=== PATIENT | female | born 1960 | race Caucasian/White ===

== ENCOUNTER 2025-02-22 14:16 | Inpatient (IN) ==
[2025-02-22 14:39] LABS: Hematocrit (blood only) 30.5 % (37.0-47.0); Hemoglobin 9.7 g/dl (12.0-16.0); Mean Corpuscular Hemoglobin 27.2 pg (25.0-34.0); Mean Corpuscular Volume 85.7 fL (80.0-100.0); Platelet Count 251 K/uL (130-400); RDW Standard Deviation 47.3 fL (36.4-46.3); Red Blood Count 3.56 M/uL (4.20-5.40); White Blood Count 12.78 K/ul (4.8-10.8)
[2025-02-22] MEDS ORDERED: VANCOMYCIN CONSULT ACTIVE PRN ×2 (14:50→22:45)
[2025-02-22] MEDS ORDERED: VANCOMYCIN HCL 750 MG in SODIUM CHLORIDE 0.9% 500 ML IV STA (14:50)
--- NOTE | 2025-02-22 14:50 | Emergency Department Note ---
Impression & Plan Sepsis, Acute and chronic respiratory failure with hypoxia, Hypokalemia, Hypomagnesemia, Non-ST elevation LA (NSTEMI), Elevated troponin I level ED Provider Note NAME: VIVIEN PADILLA AGE: 64 SEX: F : 1960 ARRIVES VIA: Walk-In INFORMANT: Patient, daughter ED PROVIDER(S): Deepak Garay DO CHIEF COMPLAINT: fever HPI: This is a 64-year-old female with the PMHx of SCLC with metastatic disease on active chemotherapy with last session yesterday, hyperlipidemia, COPD, rheumatoid arthritis, and anxiety/depression presenting to [facility] for further evaluation of fevers. Patient is accompanied by daughter who provide additional history. she reports that she reported to the [facility] today for evaluation. She was noted to have a fever. She notes that she has had chills. She states that she has arise has been in her normal state of health. She states that she does have known brain metastasis. She states that she has had a mild increase in her headaches. She reports that she had her Mediport placed on Thursday. Patient reports no pain, swelling or redness at the site. No cough or congestion. Denies chest pain or palpitations. No shortness of breath. They deny abdominal pain, nausea and vomiting. No urinary complaints. No recent changes in bowel movements. Patient denies recent changes in medications or OTC supplements. Patient offers no other complaints, today. ADDITIONAL HISTORY OBTAINED: Per HPI Chronic Medical/Social Conditions Affecting Care: Per HPI PAST MEDICAL HISTORY: See Below PAST SURGICAL HISTORY: See Below FAMILY HISTORY: See Below SOCIAL HISTORY: See Below HOME MEDICATIONS: See Below ALLERGIES: See Below VITALS: See Below PHYSICAL EXAMINATION: GENERAL: Sitting up in bed, alert, well appearing, well nourished, no distress, non-toxic EYE EXAM: normal conjunctiva. Mild anisocoria present OS 6 mm, OD 5 mm but reactive to light and EOM's grossly intact. OROPHARYNX: no exudate, no erythema, lips, buccal mucosa, and tongue normal and mucous membranes are moist NECK: supple, no nuchal rigidity, no adenopathy, non-tender LUNGS: Clear to auscultation. Normal chest wall mechanics HEART: no murmurs, regular rate, regular rhythm ABDOMEN: abdomen soft, non-tender, normo-active bowel sounds, no masses, no rebound or guarding. BACK: Back is symmetrical on inspection and there is no deformity, no midline tenderness, no CVA tenderness. SKIN: no rashes and no bruising UPPER EXTREMITIES: upper extremities are grossly normal. LOWER EXTREMITIES: No pitting edema. NEURO EXAM: Normal sensorium, cranial nerves II-XII grossly intact, normal speech, no gross weakness of arms, no gross weakness of legs. No drift. Finger to nose intact. Gross sensation intact. MEDICAL DECISION MAKING: Differential diagnoses includes but not limited to sepsis, bacteremia, UTI, pneumonia, viral URI, electrolyte derangements, dehydration, chemotherapy side effect In summary, this is a 64-year-old female who presented with fevers. Differential as above. Nursing notes and pertinent past medical records reviewed. Vital signs reviewed and the patient is febrile with a heart rate in the 90s but otherwise hemodynamically stable. History and presentation revealed active chemotherapy with last session yesterday and recent Mediport placement. Physical examination revealed minimal suprapubic tenderness to palpation but otherwise unremarkable exam. As a result of my initial evaluation, patient is on active chemotherapy for small cell lung cancer with last chemotherapy session yesterday. Recent Mediport placement. Now with fever and vital signs meeting SIRS criteria. Plan for sepsis alert. Will place on broad-spectrum antibiotics. Diagnostics interpreted by me include EKG and cardiac monitoring as listed below: -Cardiac Monitoring: An order was placed for continuous cardiac monitoring. The monitor shows a rate of 90s with regular rhythm. -ECG: EKG independently interpreted by me reveals normal sinus rhythm at a rate of [address] segment change to suggest STEMI. Intervals are otherwise within normal limits. Patient completed laboratory studies and imaging. Results independently interpreted by me are Significant for leukocytosis of 12, and mild anemia from baseline. Coagulation factors were within normal limits. Potassium was noted to be slightly low and oral replenishment was ordered. Magnesium was also mildly low and IV replenishment was ordered. Procalcitonin is negative. The patient was managed with broad spectrum antibiotics as well as fluid resuscitation and antipyretics. She was placed on broad spectrum abx given history of SCLC on active chemotherapy. CXR independently interpreted by me reveals no evidence of focal consolidation to suggest pna. No large pneumothorax or pleural effusion. Patient does have a troponin leak and BNP. Given this along with fevers and AHRF, this could be pulmonary embolus. Moderate risk of PE and CT PE study was ordered. Negative RVP and UA. Unclear source of possible sepsis. For these reasons, will obtain CTAP for further evaluation of infectious source. No meningeal findings to suggest ICH/spinal pathology. She remained hemodynamic stable but now requiring low-flow nasal cannula for oxygenation support. CT PE study as well as abdomen pelvis independently interpreted by me as negative for saddle pulmonary embolism. No significant evidence of pneumonia but could still be possible. Patient does not have any intra-abdominal pathology to suggest a source of her infection. Given no evidence of a pulmonary embolism, unclear the source of her troponinemia or BNP. She is not having any significant chest pain or shortness of breath. The patient does not have evidence of significant changes on EKG. Suspect this is likely type II demand ischemia in the setting of her sepsis as well as lung malignancy. For this reason, do not feel heparin bolus or infusion is necessary at this time. Discussed that her presentation and fevers could be related to infections and even bacteremia. I doubt that she is bacteremic but cannot ignore her chemotherapy as well as recent procedure including Mediport placement. Patient will require inpatient management for broad-spectrum antibiotics while awaiting culture data. Patient will also need further support with oxygenation with low flow nasal cannula. Will likely need this set up at home. Patient was discussed with the [facility] hospitalist group and admitted in the setting of sepsis with unknown source and acute hypoxic respiratory failure further complicated by troponinemia and elevated BNP. Consults/Care Managements Discussions: Per [facility] ER treatment provided: See above Procedures:none Critical Care: None Past Med/Surg History Problem List Elevated troponin I level (Acute) Non-ST elevation LA (NSTEMI) (Acute) Hypomagnesemia (Acute) Hypokalemia (Acute) Acute and chronic respiratory failure with hypoxia (Acute) Sepsis (Acute) Encounter for pre-operative examination High cholesterol Bronchitis Asthma Arthritis Anemia Lung cancer metastatic to brain (Chronic) Small cell lung cancer Abnormal CT scan, chest Lung nodule Tobacco abuse counseling Chronic cough Chronic obstructive pulmonary disease H/O rheumatoid arthritis History of chronic obstructive pulmonary disease H/O vitamin D deficiency H/O: depression H/O anxiety disorder No pertinent past surgical history Medical History Hx MRSA infection (2020) Wound, treated > resolved per pt Lung nodule Hx of rheumatoid arthritis History of anxiety Hx of hyperlipidemia Hx of migraines Lung cancer metastatic to brain Dx early 01/2025 Starting chemo 02/20/25, start XRT 02/21/25 Small cell lung cancer Dx early 01/2025 Starting chemo 02/20/25, start XRT 02/21/25 History of depression Chronic cough History of COPD History of asthma History of arthritis History of anemia Aortic insufficiency Follows with [facility] Chronic bronchitis Fibromyalgia Osteoporosis Surgical History Port-A-Cath in place (02/13/25) Insertion Access Port with Fluoroscopy(Left) - Luis Enrique Davey DO History of diagnostic ultrasound 01/2025, EBUS History of anesthesia reaction Has had hallucinations in past Nausea and vomiting after administration of anesthetic agent History of esophagogastroduodenoscopy (EGD) Hx of colonoscopy History of cataract surgery Bilateral History of surgery Right antecubital area - ruptured artery - then repair of an aneurysm in this same area History of surgery For fractured left clavicle > hardware intact H/O removal of cyst Upper left back H/O: hysterectomy Previous section Family History Mother , in her 70s Appendicitis Septic Diabetes Hypertension Father Medical history unknown Sister Diabetes Alcoholic Daughter Prediabetes Depression Anxiety Other Heart disease Social History Smoking Status: Former smoker Tobacco Type: Cigarettes Age Started Using Tobacco: 11; packs per day: 1; Cigarettes Per Day: 20; Second Hand Exposure: Yes (hx); Do You Dip or Chew Tobacco: No; Hx Alcohol Use: Yes (none in years) Hx Substance Use: Yes Prescribed Medications: Former Misuse of Rx Meds, Marijuana and Painkillers Last Used Substance Other:: 2-3 weeks ago Preferred Language: Estonian Communication Ability: Effective Disc Pad Knockout Worker Required: No Beliefs That Will Affect Care: None marital status: Current Living Situation: Alone current occupational status: retired current occupation: Cook How many Children do You have: 1 Feels Safe at Home: Yes Diet: regular caffeine: No during the past year weight has: decreased > 10 lbs Assistive Devices: Denture - Upper, Denture - Lower and Glasses Allergies Allergies Allergy/AdvReac Type Severity Reaction Status Date / Time ranitidine Allergy Intermediate eyes Verified 02/22/25 16:59 swelled shut Corticosteroids AdvReac Intermediate Jittery, Verified 02/22/25 16:59 (Glucocorticoids) hyperactivity, can not sleep doxycycline AdvReac Intermediate Vomiting Verified 02/22/25 16:59 tramadol AdvReac Intermediate Hallucinati Verified 02/22/25 16:59 ng Home Meds Home Medications Medication Instructions Recorded Confirmed albuterol sulfate 90 mcg/actuation 1 inh inhalation QID PRN Shortness 04/16/20 02/22/25 breath activated powder inhaler Of Breath aspirin 81 mg tablet,delayed 81 mg PO QAM 04/16/20 02/22/25 release (Adult Aspirin Regimen) tofacitinib 11 mg tablet,extended 11 mg PO QAM 04/16/20 02/22/25 release 24 hr (Xeljanz XR) clonazepam 0.5 mg tablet 0.5 mg PO DAILY PRN Anxiety 12/12/24 02/22/25 rosuvastatin 20 mg tablet (Crestor) 20 mg PO QAM 12/12/24 02/22/25 sertraline 100 mg tablet (Zoloft) 100 mg PO HS 12/12/24 02/22/25 acetaminophen 500 mg tablet 500 mg PO QID PRN Pain 02/02/25 02/22/25 (Tylenol Extra Strength) loratadine 10 mg tablet (Claritin) 10 mg PO DAILY PRN Allergy Symptoms 02/02/25 02/22/25 mecobalamin (vitamin B12) 1,000 1,000 mcg PO DAILY 02/02/25 02/22/25 mcg chewable tablet [id number]-[id number]-[id number] 1 tab PO BID PRN Headache 02/22/25 02/22/25 50 mg-325 mg-40 mg tablet dexamethasone 4 mg tablet 4 mg PO DIRECTED 02/22/25 02/22/25 gabapentin 300 mg capsule 300 mg PO TID 02/22/25 02/22/25 olanzapine 2.5 mg tablet 2.5 mg PO DIRECTED 02/22/25 02/22/25 ondansetron 8 mg disintegrating 8 mg PO Q8H PRN NAUSEA/VOMITING 02/22/25 02/22/25 tablet prochlorperazine maleate 10 mg 10 mg PO Q6H PRN NAUSEA/VOMITING 02/22/25 02/22/25 tablet Previous Rx's Medication Instructions Recorded tiotropium 2.5 mcg-olodaterol 2.5 2 puff inhalation DAILY #4 grams 12/13/24 mcg/actuation mist for inhalation (Stiolto Respimat) oxycodone 5 mg tablet 5 mg PO Q6H PRN pain #12 tabs 02/13/25 Results & Data (ED) Vital Signs Vital Signs - 24 hr 02/22/25 14:21 02/22/25 15:15 02/22/25 15:45 Temperature 38.7 C H Temperature Source Temporal Artery Scan Pulse Rate 95 H 92 H Pulse Rate from SpO2 Sensor Pulse Rhythm Regular Respiratory Rate 18 20 Respiratory Effort / Characteristics Non-Labored Spontaneous Respiratory Depth Normal Blood Pressure 151/82 H Blood Pressure Mean 105 Blood Pressure Position Sitting Pulse Oximetry 92 94 96 Oxygen Delivery Method Room Air Room Air Room Air Oxygen Flow Rate Sepsis Recent Fever Within 48 Hours Yes Sepsis New/Unexplained Change in Mental Status No Sepsis Action Taken by Nursing No Action Required 02/22/25 16:54 02/22/25 17:09 02/22/25 17:24 Temperature Temperature Source Pulse Rate 90 94 H 88 Pulse Rate from SpO2 Sensor 90 87 Pulse Rhythm Respiratory Rate 15 22 Respiratory Effort / Characteristics Respiratory Depth Blood Pressure 120/65 124/67 Blood Pressure Mean 83 86 Blood Pressure Position Pulse Oximetry 94 91 Oxygen Delivery Method Nasal Cannula Nasal Cannula Oxygen Flow Rate 2 2 Sepsis Recent Fever Within 48 Hours Sepsis New/Unexplained Change in Mental Status Sepsis Action Taken by Nursing Laboratory Data 02/22/25 14:25 02/22/25 14:25 Lab Results 02/22/25 02/22/25 02/22/25 Range/Units 14:25 15:14 16:31 WBC 12.78 H (4.8-10.8) K/ul RBC 3.56 L (4.20-5.40) M/uL Hgb 9.7 L (12.0-16.0) g/dl Hct 30.5 L (37.0-47.0) % MCV 85.7 (80.0-100.0) fL MCH 27.2 (25.0-34.0) pg MCHC 31.8 L (32.0-36.0) g/dL RDW Std Deviation 47.3 H (36.4-46.3) fL RDW Coeff of Nico 14.9 H (11.5-14.5) % Plt Count 251 (130-400) K/uL MPV 9.1 L (9.4-12.4) fL Immature Gran % (Auto) 0.9 % Neut % (Auto) 93.6 % Lymph % (Auto) 4.1 % [place] % (Auto) 1.3 % Eos % (Auto) 0.0 % Baso % (Auto) 0.1 % Neut # (Auto) 11.96 H (1.40-6.50) K/uL Lymph # (Auto) 0.53 L (1.20-3.40) K/uL [place] # (Auto) 0.17 (0.11-0.59) K/uL Eos # (Auto) 0.00 (0.00-0.50) K/uL Baso # (Auto) 0.01 (0.00-0.20) K/uL Immature Gran # (Auto) 0.11 (0.01-0.20) K/uL PT 10.4 (9.0-12.0) Seconds INR 1.0 (0.9-1.1) APTT 25 (21-31) Seconds PTT Ratio 0.9 VBG pH 7.46 H (7.36-7.41) VBG pCO2 36 L (38-50) mmHg VBG pO2 46 mmHg VBG HCO3 26 mmol/L VBG O2 Saturation 85.6 % VBG Base Excess 1.8 mEq/L Sodium 136 (136-145) mmol/L Potassium 3.2 L (3.5-5.1) mmol/L Chloride 104 (98-107) mmol/L Carbon Dioxide 24 (21-32) mmol/L Anion Gap 8 (3-11) BUN 11 (6-23) mg/dl Creatinine 0.66 (0.6-1.2) mg/dl Est Cr Clr Drug Dosing 52.5 ml/min eGFR 97.90 BUN/Creatinine Ratio 16.7 (10-20) Glucose 149 H (70-99(Fasting)) mg/dl Lactate 1.5 (0.4-2.0) mmol/L Calcium 8.0 L (8.6-10.3) mg/dl Magnesium 1.5 L (1.7-2.4) mg/dl Total Bilirubin 0.3 (0.2-1.0) mg/dl AST 19 (13-39) U/L ALT 13 (7-52) U/L Alkaline Phosphatase 58 (34-104) U/L Troponin I High Sens 142.0 H* 144.7 H* (0-14) pg/ml B-Natriuretic Peptide 574 H (0-100) pg/ml Total Protein 6.3 (6.0-8.3) gm/dl Albumin 3.4 (3.4-5.0) gm/dl Globulin 2.9 (2.5-4.0) gm/dl Albumin/Globulin Ratio 1.2 (0.9-2) Procalcitonin 0.29 (0-0.5) ng/ml Urine Color Urine Appearance (Clear) Urine pH (4.5-7.5) Ur Specific [place] (1.000-1.030) Urine Protein (Negative) Urine Glucose (UA) (Negative) Urine Ketones (Negative) Urine Blood (Negative) Urine Nitrite (Negative) Urine Bilirubin (Negative) Urine Urobilinogen (Negative) Ur Leukocyte Esterase (Negative) Urine Comment Adenovirus (PCR) (NotDetected) B. pertussis DNA (PCR) (NotDetected) B.parapertussis DNA PCR (NotDetected) C. pneumoniae DNA (PCR) (NotDetected) Coronavirus OC43 (PCR) (NotDetected) Coronavirus HKU1 (PCR) (NotDetected) Coronavirus 229E (PCR) (NotDetected) SARS-CoV-2 (PCR) (NotDetected) Coronavirus NL63 (PCR) (NotDetected) Human Metapneumovir PCR (NotDetected) Influenza Type A (PCR) (NotDetected) Influenza Type B (PCR) (NotDetected) M. pneumoniae (PCR) (NotDetected) Parainfluenza 1 (PCR) (NotDetected) Parainfluenza 2 (PCR) (NotDetected) Parainfluenza 3 (PCR) (NotDetected) Parainfluenza 4 (PCR) (NotDetected) RSV (PCR) (NotDetected) Entero/Rhino (PCR) (NotDetected) 02/22/25 02/22/25 Range/Units 18:21 Unknown WBC (4.8-10.8) K/ul RBC (4.20-5.40) M/uL Hgb (12.0-16.0) g/dl Hct (37.0-47.0) % MCV (80.0-100.0) fL MCH (25.0-34.0) pg MCHC (32.0-36.0) g/dL RDW Std Deviation (36.4-46.3) fL RDW Coeff of Nico (11.5-14.5) % Plt Count (130-400) K/uL MPV (9.4-12.4) fL Immature Gran % (Auto) % Neut % (Auto) % Lymph % (Auto) % [place] % (Auto) % Eos % (Auto) % Baso % (Auto) % Neut # (Auto) (1.40-6.50) K/uL Lymph # (Auto) (1.20-3.40) K/uL [place] # (Auto) (0.11-0.59) K/uL Eos # (Auto) (0.00-0.50) K/uL Baso # (Auto) (0.00-0.20) K/uL Immature Gran # (Auto) (0.01-0.20) K/uL PT (9.0-12.0) Seconds INR (0.9-1.1) APTT (21-31) Seconds PTT Ratio VBG pH (7.36-7.41) VBG pCO2 (38-50) mmHg VBG pO2 mmHg VBG HCO3 mmol/L VBG O2 Saturation % VBG Base Excess mEq/L Sodium (136-145) mmol/L Potassium (3.5-5.1) mmol/L Chloride (98-107) mmol/L Carbon Dioxide (21-32) mmol/L Anion Gap (3-11) BUN (6-23) mg/dl Creatinine (0.6-1.2) mg/dl Est Cr Clr Drug Dosing ml/min eGFR BUN/Creatinine Ratio (10-20) Glucose (70-99(Fasting)) mg/dl Lactate (0.4-2.0) mmol/L Calcium (8.6-10.3) mg/dl Magnesium (1.7-2.4) mg/dl Total Bilirubin (0.2-1.0) mg/dl AST (13-39) U/L ALT (7-52) U/L Alkaline Phosphatase (34-104) U/L Troponin I High Sens 151.3 H* (0-14) pg/ml B-Natriuretic Peptide (0-100) pg/ml Total Protein (6.0-8.3) gm/dl Albumin (3.4-5.0) gm/dl Globulin (2.5-4.0) gm/dl Albumin/Globulin Ratio (0.9-2) Procalcitonin (0-0.5) ng/ml Urine Color Yellow Urine Appearance Clear (Clear) Urine pH 6.0 (4.5-7.5) Ur Specific [place] 1.016 (1.000-1.030) Urine Protein Negative (Negative) Urine Glucose (UA) Negative (Negative) Urine Ketones Negative (Negative) Urine Blood Negative (Negative) Urine Nitrite Negative (Negative) Urine Bilirubin Negative (Negative) Urine Urobilinogen Negative (Negative) Ur Leukocyte Esterase Negative (Negative) Urine Comment Adenovirus (PCR) Not Detected (NotDetected) B. pertussis DNA (PCR) Not Detected (NotDetected) B.parapertussis DNA PCR Not Detected (NotDetected) C. pneumoniae DNA (PCR) Not Detected (NotDetected) Coronavirus OC43 (PCR) Not Detected (NotDetected) Coronavirus HKU1 (PCR) Not Detected (NotDetected) Coronavirus 229E (PCR) Not Detected (NotDetected) SARS-CoV-2 (PCR) Not Detected (NotDetected) Coronavirus NL63 (PCR) Not Detected (NotDetected) Human Metapneumovir PCR Not Detected (NotDetected) Influenza Type A (PCR) Not Detected (NotDetected) Influenza Type B (PCR) Not Detected (NotDetected) M. pneumoniae (PCR) Not Detected (NotDetected) Parainfluenza 1 (PCR) Not Detected (NotDetected) Parainfluenza 2 (PCR) Not Detected (NotDetected) Parainfluenza 3 (PCR) Not Detected (NotDetected) Parainfluenza 4 (PCR) Not Detected (NotDetected) RSV (PCR) Not Detected (NotDetected) Entero/Rhino (PCR) Not Detected (NotDetected) Administered Medications Discontinued Medications Acetaminophen (Acetaminophen 500 Mg Tab) 1,000 mg PO NOW STA Stop: 02/22/25 14:51 Last Admin: 02/22/25 15:57 Dose: 1,000 mg Documented By: TARIQ Cefepime HCl (Maxipime 2000mg) 2,000 mg in 20 mls @ 5 mls/min IV NOW STA; Protocol Stop: 02/22/25 14:53 Last Admin: 02/22/25 15:57 Dose: 5 mls/min Documented By: TARIQ Parenteral Electrolytes (Plasma-Lyte A Ph 7.4) 1,000 mls @ 999 mls/hr IV .Q1H1M ONE Stop: 02/22/25 15:50 Last Admin: 02/22/25 16:21 Dose: Not Given Documented By: TARIQ Magnesium Sulfate/Dextrose (Magnesium Sulfate / D5w) 1 gm in 100 mls @ 100 mls/hr IV Q1H ASPEN Stop: 02/22/25 17:14 Last Infusion: 02/22/25 19:49 Dose: Infused Documented By: Admin: 02/22/25 18:33 Dose: 100 mls/hr Documented By: Infusion: 02/22/25 17:35 Dose: Infused Documented By: Admin: 02/22/25 16:09 Dose: 100 mls/hr Documented By: TARIQ Vancomycin HCl 750 mg/ Sodium (Chloride) 265 mls @ 200 mls/hr IV ONE ONE Stop: 02/22/25 17:19 Last Infusion: 02/22/25 18:00 Dose: Infused Documented By: Admin: 02/22/25 16:26 Dose: 200 mls/hr Documented By: TARIQ Sodium Chloride (Nss) 1,000 mls @ 999 mls/hr IV .Q1H1M ONE Stop: 02/22/25 17:19 Last Infusion: 02/22/25 17:26 Dose: Infused Documented By: Admin: 02/22/25 16:21 Dose: 999 mls/hr Documented By: TARIQ Ioversol (Optiray 320 125ml) 118 ml IV ONCE ONE Stop: 02/22/25 18:17 Last Admin: 02/22/25 18:16 Dose: 118 ml Documented By: LLOYD Ketorolac Tromethamine (Ketorolac Tromethamine 15 Mg/Ml Vial) 15 mg IV NOW STA Stop: 02/22/25 14:51 Last Admin: 02/22/25 15:57 Dose: 15 mg Documented By: TARIQ Potassium Chloride (Potassium Chloride Crtab 20 Meq Tabcr) 40 meq PO NOW STA Stop: 02/22/25 15:16 Last Admin: 02/22/25 15:56 Dose: 40 meq Documented By: TARIQ Imaging Data Radiologist's Impression: Chest X-Ray 02/22/25 14:24 XR chest 1V portable HISTORY: 64 years-old Female Sepsis COMPARISON: Chest radiograph 02/21/2025, PET/CT 01/25/2025. TECHNIQUE: AP view of the chest FINDINGS: Cardiomediastinal and hilar silhouettes are unchanged. Stable positioning of the left subclavian [id number]-[id number] catheter. Emphysema with chronic interstitial coarsening. Reticulonodular opacities of the right lung base are stable. 2 cm right lower lobe nodule redemonstrated. IMPRESSION: 1. Emphysema with chronic reticular nodular opacities of the right lung base, likely infectious or inflammatory. 2. 2 cm right lower lobe nodule redemonstrated, further described on the January 25, 2025 PET/CT. ACT 112: Negative or not required by law. The above report was generated using voice recognition software. It may contain grammatical, syntax or spelling errors. Electronically signed by: Adalberto Dong M.D. 02/22/2025 3:17 PM Abdomen/Pelvis CT 02/22/25 17:15 EXAMINATION: CT of the abdomen and pelvis performed after the administration of IV contrast TECHNIQUE: Helical CT images from the lung bases through the symphysis pubis were obtained with contrast. Coronal and sagittal reformatted images were generated at a workstation for further assessment. Dose reduction techniques were achieved by using automatic exposure control and/or adjustment of mA and/or kV according to patient size and/or use of iterative reconstruction technique. COMPARISON: None HISTORY: Abdominal pain FINDINGS: Liver: No suspicious liver lesions. Portal veins appear patent. Gallbladder: No gallstones. No evidence of acute cholecystitis. Spleen: Normal size. Pancreas: Scattered cystic lesions seen within the body of the pancreas. This includes a cyst seen on the coronal image 45 measuring 11 mm. Mildly dilated pancreatic duct, at the head of measuring 4 mm. Adrenal glands: No adrenal nodules. Kidneys: No hydronephrosis or obstructing renal stones. Bladder / Pelvic organs: Unremarkable. Bowel: No bowel obstruction. No abnormal bowel wall thickening. The appendix is unremarkable. Lymph nodes: No retroperitoneal, mesenteric, or pelvic lymphadenopathy. Peritoneum / Retroperitoneum: There is mild free fluid in the pelvis within the peritoneal space. No free air. Vessels: No infrarenal aortic aneurysm. Heavy aortoiliac calcifications. Bones and soft tissues: No suspicious lesion in the bones. IMPRESSION: 1. No acute finding in the abdomen or pelvis. 2. Numerous cystic lesions in the pancreas, as well as slight dilation of the pancreatic duct. Recommend follow-up MRI in 6 to 12 months. Electronically signed by Feliberto Duron 02-22-2025 7:13 PM Chest CTA 02/22/25 17:15 CT pulmonary angiogram with IV contrast History: Chest pain COMPARISON: January 04, 2025 TECHNIQUE: CT angiography of the chest was performed without IV contrast followed by IV contrast, including 3D post processing CTA image reconstruction. Dose reduction techniques were achieved by using automatic exposure control and/or adjustment of mA and/or kV according to patient size and/or use of iterative reconstruction technique. FINDINGS: Diagnostic quality: Adequate There is no evidence for pulmonary embolism. Left chest wall port with catheter tip at the superior atrial caval junction. The heart is not enlarged. There is no pericardial effusion. A prominent subcarinal lymph node is similar to prior section of the, measuring approximately 17 mm in the short axis diameter. Mucoid impaction with complete occlusion of the right. Lower lobe bronchus and distal small airways, which appear enlarged and expanded. A rounded area of soft tissue prominence is seen in the inferior right hilar region measuring 2.6 cm, which appears increased from prior when it measured 2.1 cm. Scattered tiny centrilobular nodules at the right lower lobe appear increased in size and number. There is no pleural effusion. Limited visualized upper abdomen. No destructive osseous changes are seen. Multilevel areas of sclerosis throughout the anterior ribs bilaterally, may be from old injury. Chronic sternal deformity. IMPRESSION: No evidence for pulmonary embolism. Redemonstrated mucoid impaction of the right lower lobe bronchus and distal small airways throughout the right lower lobe. An area of soft tissue density within the right lower lobe hilar region has increased from December 2024. Follow-up recommended, including endoscopy, and/or PET/CT. Electronically signed by Feliberto Duron 02-22-2025 7:06 PM Discharge Plan Visit Data Chief Complaint: Fever Stated Complaint: HIGH TEMP ED Provider: Deepak Garay Discharge Problem: Sepsis, Acute and chronic respiratory failure with hypoxia, Hypokalemia, Hypomagnesemia, Non-ST elevation LA (NSTEMI), Elevated troponin I level Patient Disposition: Admitted As Inpatient Condition: Serious Forms Stand Alone Forms: My [facility] [employer] Prescriptions Prescriptions: No Action mecobalamin (vitamin B12) 1,000 mcg tablet,chewable 1,000 mcg PO DAILY acetaminophen [Tylenol Extra Strength] 500 mg tablet 500 mg PO QID PRN (Reason: Pain) Xeljanz XR 11 mg tablet extended release 24 hr 11 mg PO QAM aspirin [Adult Aspirin Regimen] 81 mg tablet,delayed release (DR/EC) 81 mg PO QAM Rx Instructions: NOT TAKING PER PT albuterol sulfate 90 mcg/actuation aerosol powdr breath activated 1 inh inhalation QID PRN (Reason: Shortness Of Breath) loratadine [Claritin] 10 mg tablet 10 mg PO DAILY PRN (Reason: Allergy Symptoms) rosuvastatin [Crestor] 20 mg tablet 20 mg PO QAM sertraline [Zoloft] 100 mg tablet 100 mg PO HS clonazepam 0.5 mg tablet 0.5 mg PO DAILY PRN (Reason: Anxiety) Stiolto Respimat 2.5-2.5 mcg/actuation mist 2 puff inhalation DAILY Qty: 4 2RF Patient Comments: "has not used, it clicks and makes her jump" oxycodone 5 mg tablet 5 mg PO Q6H PRN (Reason: pain) Qty: 12 0RF Rx Instructions: Initial therapy post surgery prochlorperazine maleate 10 mg tablet 10 mg PO Q6H PRN (Reason: NAUSEA/VOMITING) olanzapine 2.5 mg tablet 2.5 mg PO DIRECTED [id number] 50-325-40 mg tablet 1 tab PO BID PRN (Reason: Headache) ondansetron [Zofran ODT] 8 mg Tablet,Disintegrating 8 mg PO Q8H PRN (Reason: NAUSEA/VOMITING) dexamethasone 4 mg tablet 4 mg PO DIRECTED Rx Instructions: TAKES 1 HR PRIOR TO RADIATION RX. DO NOT TAKE XELJANX WHEN THIS MED IS TAKEN. gabapentin 300 mg capsule 300 mg PO TID Referrals Referrals: Prudencio Prajapati [Primary Care Provider] - Discharge Problem: Sepsis Qualifiers: Sepsis type: sepsis due to unspecified organism Sepsis acute organ dysfunction status: with acute organ dysfunction Severe sepsis acute organ dysfunction type: acute respiratory failure
[2025-02-22 14:55] LABS: Immature Granulocytes # (auto) 0.11 K/uL (0.01-0.20); Immature Granulocytes % (auto) 0.9 %
[2025-02-22 14:57] LABS: Alanine Aminotransferase 13.0 U/L (7-52); Albumin Globulin Ratio 1.2 (0.9-2); Alkaline Phosphatase 58.0 U/L (34-104); Anion Gap 8.0 (3-11); Bilirubin,Total 0.3 mg/dl (0.2-1.0); Blood Urea Nitrogen 11.0 mg/dl (6-23); Calcium 8.0 mg/dl (8.6-10.3); Carbon Dioxide 24.0 mmol/L (21-32); Chloride 104.0 mmol/L (98-107); Creatinine Clr Calc Pharmacy 52.5 ml/min; Globulin 2.9 gm/dl (2.5-4.0); Glucose 149.0 mg/dl (70-99(Fasting)); Magnesium 1.5 mg/dl (1.7-2.4); Potassium 3.2 mmol/L (3.5-5.1); Sodium 136.0 mmol/L (136-145); Total Protein 6.3 gm/dl (6.0-8.3)
[2025-02-22 15:07] LABS: INR 1.0 (0.9-1.1); Partial Thromboplastin Time 25 Seconds (21-31); Prothrombin Time 10.4 Seconds (9.0-12.0)
--- NOTE | 2025-02-22 15:18 | XRay Report ---
XR chest 1V portable HISTORY: 64 years-old Female Sepsis COMPARISON: Chest radiograph 02/21/2025, PET/CT 01/25/2025. TECHNIQUE: AP view of the chest FINDINGS: Cardiomediastinal and hilar silhouettes are unchanged. Stable positioning of the left subclavian Infu se-a-Port catheter. Emphysema with chronic interstitial coarsening. Reticulonodular opacities of the right lung base are stable. 2 cm right lower lobe nodule redemonstrated. IMPRESSION: 1. Emphysema with chronic reticular nodular opacities of the right lung base, likely infectious or in flammatory. 2. 2 cm right lower lobe nodule redemonstrated, further described on the January 25, 2025 PET/CT. ACT 112: Negative or not required by law. The above report was generated using voice recognition software. It may contain grammatical, syntax o r spelling errors. Electronically signed by: Adalberto Dong M.D. 02/22/2025 3:17 PM
[2025-02-22 15:23] LABS: Base Excess VBG 1.8 mEq/L; HCO3 VBG 26 mmol/L; Oxygen Saturation VBG 85.6 %; PCO2 VBG 36 mmHg (38-50); PO2 VBG 46 mmHg; pH VBG 7.46 (7.36-7.41)
[2025-02-22] MEDS: POTASSIUM CHLORIDE CRTAB 20 MEQ TABCR PO STA ×2 (15:56→23:40)
[2025-02-22] MEDS: ACETAMINOPHEN 500 MG TAB PO STA (15:57)
[2025-02-22] MEDS: CEFEPIME 2000MG 2,000 MG/20 ML SYR IV STA (15:57)
[2025-02-22] MEDS: KETOROLAC TROMETHAMINE 15 MG/ML VIAL IV STA (15:57)
[2025-02-22] MEDS: PLASMA-LYTE A 1,000 ML IV ONE (15:58)
[2025-02-22] MEDS: MAGNESIUM SULFATE / D5W 1 GM/100 ML BAG IV SCH (16:09)
[2025-02-22] MEDS: SODIUM CHLORIDE 0.9% 1,000 ML IV ONE (16:21)
[2025-02-22] MEDS: VANCOMYCIN 750 MG in SODIUM CHLORIDE 0.9% 250 ML IV ONE (16:26)
[2025-02-22 17:34] LABS: Appearance Urine Clear (Clear); Glucose Urine UA Negative (Negative)
--- NOTE | 2025-02-22 17:55 | Electrocardiogram Report ---
Test Reason : Blood Pressure : */* mmHG Vent. Rate : 88 BPM Atrial Rate : 88 BPM P-R Int : 134 ms QRS Dur : 64 ms QT Int : 358 ms P-R-T Axes : 65 60 64 degrees QTcB Int : 433 ms Normal sinus rhythm Normal ECG When compared with ECG of 08-Feb-2025 14:33, T wave inversion now evident in Anterior leads Confirmed by Feliberto Saravia ([id number]) on 02/22/2025 5:54:48 PM Referred By: REFERRED SELF Confirmed By: Felibreto Saravia
[2025-02-22] MEDS: OPTIRAY 320 125ml IV ONE (18:16)
[2025-02-22 18:21] LABS: Chlamydia pneumoniae PCR Not Detected (NotDetected); Coronavirus 229E PCR Not Detected (NotDetected); Coronavirus CoV-2 (COVID19)PCR Not Detected (NotDetected); Coronavirus HKU1 PCR Not Detected (NotDetected); Coronavirus NL63 PCR Not Detected (NotDetected); Coronavirus OC43PCR Not Detected (NotDetected); Human Metapneumovirus PCR Not Detected (NotDetected); Parainfluenza Virus 1 PCR Not Detected (NotDetected); Parainfluenza Virus 2 PCR Not Detected (NotDetected); Parainfluenza Virus 3 PCR Not Detected (NotDetected); Parainfluenza Virus 4 PCR Not Detected (NotDetected); Respiratory Syncytial VirusPCR Not Detected (NotDetected); Rhinovirus/Enterovirus PCR Not Detected (NotDetected)
--- NOTE | 2025-02-22 19:06 | CT Scan Report ---
CT pulmonary angiogram with IV contrast History: Chest pain COMPARISON: January 04, 2025 TECHNIQUE: CT angiography of the chest was performed without IV contrast followed by IV contrast, including 3D post processing CTA image reconstruction. Dose reduction techniques were achieved by using automatic exposure control and/or adjustment of mA and/or kV according to patient size and/or use of iterative reconstruction technique. FINDINGS: Diagnostic quality: Adequate There is no evidence for pulmonary embolism. Left chest wall port with catheter tip at the superior atrial caval junction. The heart is not enlarged. There is no pericardial effusion. A prominent subcarinal lymph node is similar to prior section of the, measuring approximately 17 mm in the short axis diameter. Mucoid impaction with complete occlusion of the right. Lower lobe bronchus and distal small airways, which appear enlarged and expanded. A rounded area of soft tissue prominence is seen in the inferior right hilar region measuring 2.6 cm, which appears increased from prior when it measured 2.1 cm. Scattered tiny centrilobular nodules at the right lower lobe appear increased in size and number. There is no pleural effusion. Limited visualized upper abdomen. No destructive osseous changes are seen. Multilevel areas of sclerosis throughout the anterior ribs bilaterally, may be from old injury. Chronic sternal deformity. IMPRESSION: No evidence for pulmonary embolism. Redemonstrated mucoid impaction of the right lower lobe bronchus and distal small airways throughout the right lower lobe. An area of soft tissue density within the right lower lobe hilar region has increased from December 2024. Follow-up recommended, including endoscopy, and/or PET/CT. Electronically signed by Feliberto Duron 02-22-2025 7:06 PM
--- NOTE | 2025-02-22 19:14 | CT Scan Report ---
EXAMINATION: CT of the abdomen and pelvis performed after the administration of IV contrast TECHNIQUE: Helical CT images from the lung bases through the symphysis pubis were obtained with contrast. Coronal and sagittal reformatted images were generated at a workstation for further assessment. Dose reduction techniques were achieved by using automatic exposure control and/or adjustment of mA and/or kV according to patient size and/or use of iterative reconstruction technique. COMPARISON: None HISTORY: Abdominal pain FINDINGS: Liver: No suspicious liver lesions. Portal veins appear patent. Gallbladder: No gallstones. No evidence of acute cholecystitis. Spleen: Normal size. Pancreas: Scattered cystic lesions seen within the body of the pancreas. This includes a cyst seen on the coronal image 45 measuring 11 mm. Mildly dilated pancreatic duct, at the head of measuring 4 mm. Adrenal glands: No adrenal nodules. Kidneys: No hydronephrosis or obstructing renal stones. Bladder / Pelvic organs: Unremarkable. Bowel: No bowel obstruction. No abnormal bowel wall thickening. The appendix is unremarkable. Lymph nodes: No retroperitoneal, mesenteric, or pelvic lymphadenopathy. Peritoneum / Retroperitoneum: There is mild free fluid in the pelvis within the peritoneal space. No free air. Vessels: No infrarenal aortic aneurysm. Heavy aortoiliac calcifications. Bones and soft tissues: No suspicious lesion in the bones. IMPRESSION: 1. No acute finding in the abdomen or pelvis. 2. Numerous cystic lesions in the pancreas, as well as slight dilation of the pancreatic duct. Recommend follow-up MRI in 6 to 12 months. Electronically signed by Feliberto Duron 02-22-2025 7:13 PM
--- NOTE | 2025-02-22 21:04 | History & Physical Report ---
Date of Service February 22, 2025 Assessment & Plan (1) Fever: (2) Lung cancer metastatic to brain: (3) Elevated troponin: (4) Chronic obstructive pulmonary disease: Plan 64yo female with history of metastatic lung cancer, RA, COPD presenting with fever following chemotherapy. #Fever - patient hemodynamically stable. Procalcitonin is WNL. She does have leukocytosis with WBC=12.78, no neutropenia. No obvious source as of yet. UA, CXR, respiratory panel are unremarkable. -Admit to medical -Follow cultures -Repeat CBC in AM with differential -Continue empiric antibiotics Vancomycin and Cefepime -Continue IVF LR at 80mL/hr x 1L -Tylenol PRN #Lung cancer metastatic to brain - on chemotherapy with fever as above. 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 Patient is on chemotherapy with cisplatin, etoposide and durvalumab and follows with Dr. Carbajal as well as Radiation Oncology. Patient had a Mediport placed on 02/13. She received a chemotherapy treatment yesterday. Today she developed chills and rigors. She had an appointment today with Oncology and was found to be febrile so she was sent to the ER for further evaluation. Patient denies chest pain, cough, SOB, abdominal pain, nausea, vomiting. She has mild non-bloody diarrhea which has been ongoing for some time. No report of urinary complaints, rashes or joint pain. No sick contacts or recent travel. Her port site feels fine with no pain, redness or drainage. She has been having a headache but otherwise no complaints. In the ER she is febrile at 38.7, otherwise HD stable ER Course: Potassium 40mEq Cefepime 2gm Tylenol 1gm Toradol 15mg Magnesium 1gm NSS x 1L Vancomycin Allergies Allergy/AdvReac Type Severity Reaction Status Date / Time ranitidine Allergy Intermediate eyes Verified 02/22/25 16:59 swelled shut Corticosteroids AdvReac Intermediate Jittery, Verified 02/22/25 16:59 (Glucocorticoids) hyperactivity, can not sleep doxycycline AdvReac Intermediate Vomiting Verified 02/22/25 16:59 tramadol AdvReac Intermediate Hallucinati Verified 02/22/25 16:59 ng Home Medications Medication Instructions Recorded Confirmed Type albuterol sulfate 90 mcg/actuation 1 inh inhalation QID PRN Shortness 04/16/20 02/22/25 History breath activated powder inhaler Of Breath aspirin 81 mg tablet,delayed 81 mg PO QAM 04/16/20 02/22/25 History release (Adult Aspirin Regimen) tofacitinib 11 mg tablet,extended 11 mg PO QAM 04/16/20 02/22/25 History release 24 hr (Xeljanz XR) clonazepam 0.5 mg tablet 0.5 mg PO DAILY PRN Anxiety 12/12/24 02/22/25 History rosuvastatin 20 mg tablet (Crestor) 20 mg PO QAM 12/12/24 02/22/25 History sertraline 100 mg tablet (Zoloft) 100 mg PO HS 12/12/24 02/22/25 History tiotropium 2.5 mcg-olodaterol 2.5 2 puff inhalation DAILY #4 grams 12/13/24 02/22/25 Rx mcg/actuation mist for inhalation (Stiolto Respimat) acetaminophen 500 mg tablet 500 mg PO QID PRN Pain 02/02/25 02/22/25 History (Tylenol Extra Strength) loratadine 10 mg tablet (Claritin) 10 mg PO DAILY PRN Allergy Symptoms 02/02/25 02/22/25 History mecobalamin (vitamin B12) 1,000 1,000 mcg PO DAILY 02/02/25 02/22/25 History mcg chewable tablet oxycodone 5 mg tablet 5 mg PO Q6H PRN pain #12 tabs 02/13/25 02/22/25 Rx gojhslwktt-sswxvqtsvmljk-dxbyftsc 1 tab PO BID PRN Headache 02/22/25 02/22/25 History 50 mg-325 mg-40 mg tablet dexamethasone 4 mg tablet 4 mg PO DIRECTED 02/22/25 02/22/25 History gabapentin 300 mg capsule 300 mg PO TID 02/22/25 02/22/25 History olanzapine 2.5 mg tablet 2.5 mg PO DIRECTED 02/22/25 02/22/25 History ondansetron 8 mg disintegrating 8 mg PO Q8H PRN NAUSEA/VOMITING 02/22/25 02/22/25 History tablet prochlorperazine maleate 10 mg 10 mg PO Q6H PRN NAUSEA/VOMITING 02/22/25 02/22/25 History tablet Past Med/Surg History Problem List Elevated troponin Fever Elevated troponin I level (Acute) Non-ST elevation [place] (NSTEMI) (Acute) Hypomagnesemia (Acute) Hypokalemia (Acute) Acute and chronic respiratory failure with hypoxia (Acute) Sepsis (Acute) Encounter for pre-operative examination High cholesterol Bronchitis Asthma Arthritis Anemia Lung cancer metastatic to brain (Chronic) Small cell lung cancer Abnormal CT scan, chest Lung nodule Tobacco abuse counseling Chronic cough Chronic obstructive pulmonary disease H/O rheumatoid arthritis History of chronic obstructive pulmonary disease H/O vitamin D deficiency H/O: depression H/O anxiety disorder No pertinent past surgical history Medical History Hx MRSA infection (2019) Wound, treated > resolved per pt Lung nodule Hx of rheumatoid arthritis History of anxiety Hx of hyperlipidemia Hx of migraines Lung cancer metastatic to brain Dx early 01/2025 Starting chemo 02/20/25, start XRT 02/21/25 Small cell lung cancer Dx early 01/2025 Starting chemo 02/20/25, start XRT 02/21/25 History of depression Chronic cough History of COPD History of asthma History of arthritis History of anemia Aortic insufficiency Follows with [facility] Chronic bronchitis Fibromyalgia Osteoporosis Surgical History Port-A-Cath in place (02/13/25) Insertion Access Port with Fluoroscopy(Left) - Luis Enrique Davey DO History of diagnostic ultrasound 01/2025, EBUS History of anesthesia reaction Has had hallucinations in past Nausea and vomiting after administration of anesthetic agent History of esophagogastroduodenoscopy (EGD) Hx of colonoscopy History of cataract surgery Bilateral History of surgery Right antecubital area - ruptured artery - then repair of an aneurysm in this same area History of surgery For fractured left clavicle > hardware intact H/O removal of cyst Upper left back H/O: hysterectomy Previous section Family History Mother , in her 70s Appendicitis Septic Diabetes Hypertension Father Medical history unknown Sister Diabetes Alcoholic Daughter Prediabetes Depression Anxiety Other Heart disease Social History Smoking Status: Former smoker Tobacco Type: Cigarettes Age Started Using Tobacco: 11; packs per day: 1; Cigarettes Per Day: 2 packs; Smoking End Date: "couple of weeks ago"; Second Hand Exposure: Yes (hx); Do You Dip or Chew Tobacco: No; Hx Alcohol Use: No Hx Substance Use: Yes Prescribed Medications: Former Misuse of Rx Meds, Marijuana and Painkillers Last Used Substance: Unknown Last Used Substance Other:: quit a couple of weeks ago Preferred Language: Citizen Of [place] Communication Ability: Effective Big Data Engineer Required: No Beliefs That Will Affect Care: None marital status: Current Living Situation: Alone current occupational status: retired current occupation: Cook How many Children do You have: 1 Feels Safe at Home: Yes Safety Concerns: Feels Safe At This Time Diet: regular caffeine: No during the past year weight has: decreased > 10 lbs Assistive Devices: Cane, Denture - Upper, Denture - Lower, Glasses and Walker Assistive Devices Comment: Does not really use walker/cane. Reading glasses Review of Systems Review of Systems: All systems reviewed & are unremarkable except as noted in HPI & below Physical Exam Physical Exam: General: patient resting comfortably, NAD, non-toxic in appearance, AA&O x 4 Skin: warm, dry, intact, no rashes or lesions HEENT: NC/AT, PERRL, EOMI, anicteric sclera, conjunctiva without injection, external ear normal to inspection and nontender, nares patent, moist mucus membranes, dentition intact, no oropharyngeal lesions, neck supple, trachea midline, no LAD, no thyromegaly, no JVD Heart: +S1/S2, regular, no m/r/g, left chest port wtih dressing in place, no redness or pain Lungs: equal air entry bilaterally, no rales/rhonchi/wheezes Abd: +BS, soft, NT/ND, no masses/organomegaly/ascites Ext: warm, 2+ pulses in UE/LE bilaterally, no clubbing/cyanosis or edema Neuro: nonfocal, patient AA&O x 4, speech intact, no facial droop, moving all extremities on command with equal strength 5/5 Results & Data Results & Data Vital Signs (Past 12 Hours) Vital Signs Temp Pulse Resp BP Pulse Ox O2 Del Method O2 Flow Rate 02/22/25 17:24 88 22 124/67 91 Nasal Cannula 2 02/22/25 17:09 94 H 02/22/25 16:54 90 15 120/65 94 Nasal Cannula 2 02/22/25 15:45 96 Room Air 02/22/25 15:15 92 H 20 94 Room Air 02/22/25 14:21 38.7 C H 95 H 18 151/82 H 92 Room Air Laboratory Results Laboratory Results WBC 12.78 K/ul (4.8-10.8) H 02/22/25 14:25 RBC 3.56 M/uL (4.20-5.40) L 02/22/25 14:25 Hgb 9.7 g/dl (12.0-16.0) L 02/22/25 14:25 Hct 30.5 % (37.0-47.0) L 02/22/25 14:25 MCV 85.7 fL (80.0-100.0) 02/22/25 14:25 MCH 27.2 pg (25.0-34.0) 02/22/25 14:25 MCHC 31.8 g/dL (32.0-36.0) L 02/22/25 14:25 RDW Std Deviation 47.3 fL (36.4-46.3) H 02/22/25 14:25 RDW Coeff of Nico 14.9 % (11.5-14.5) H 02/22/25 14:25 Plt Count 251 K/uL (130-400) 02/22/25 14:25 MPV 9.1 fL (9.4-12.4) L 02/22/25 14:25 Immature Gran % (Auto) 0.9 % 02/22/25 14:25 Neut % (Auto) 93.6 % 02/22/25 14:25 Lymph % (Auto) 4.1 % 02/22/25 14:25 Mccone % (Auto) 1.3 % 02/22/25 14:25 Eos % (Auto) 0.0 % 02/22/25 14:25 Baso % (Auto) 0.1 % 02/22/25 14:25 Neut # (Auto) 11.96 K/uL (1.40-6.50) H 02/22/25 14:25 Lymph # (Auto) 0.53 K/uL (1.20-3.40) L 02/22/25 14:25 Mccone # (Auto) 0.17 K/uL (0.11-0.59) 02/22/25 14:25 Eos # (Auto) 0.00 K/uL (0.00-0.50) 02/22/25 14:25 Baso # (Auto) 0.01 K/uL (0.00-0.20) 02/22/25 14:25 Immature Gran # (Auto) 0.11 K/uL (0.01-0.20) 02/22/25 14:25 PT 10.4 Seconds (9.0-12.0) 02/22/25 14:25 INR 1.0 (0.9-1.1) 02/22/25 14:25 APTT 25 Seconds (21-31) 02/22/25 14:25 PTT Ratio 0.9 02/22/25 14:25 VBG pH 7.46 (7.36-7.41) H 02/22/25 15:14 VBG pCO2 36 mmHg (38-50) L 02/22/25 15:14 VBG pO2 46 mmHg 02/22/25 15:14 VBG HCO3 26 mmol/L 02/22/25 15:14 VBG O2 Saturation 85.6 % 02/22/25 15:14 VBG Base Excess 1.8 mEq/L 02/22/25 15:14 Sodium 136 mmol/L (136-145) 02/22/25 14:25 Potassium 3.2 mmol/L (3.5-5.1) L 02/22/25 14:25 Chloride 104 mmol/L (98-107) 02/22/25 14:25 Carbon Dioxide 24 mmol/L (21-32) 02/22/25 14:25 Anion Gap 8 (3-11) 02/22/25 14:25 BUN 11 mg/dl (6-23) 02/22/25 14:25 Creatinine 0.66 mg/dl (0.6-1.2) 02/22/25 14:25 Est Cr Clr Drug Dosing 52.5 ml/min 02/22/25 14:25 eGFR 97.90 02/22/25 14:25 BUN/Creatinine Ratio 16.7 (10-20) 02/22/25 14:25 Glucose 149 mg/dl (70-99(Fasting)) H 02/22/25 14:25 Lactate 1.5 mmol/L (0.4-2.0) 02/22/25 15:14 Calcium 8.0 mg/dl (8.6-10.3) L 02/22/25 14:25 Magnesium 1.5 mg/dl (1.7-2.4) L 02/22/25 14:25 Total Bilirubin 0.3 mg/dl (0.2-1.0) 02/22/25 14:25 AST 19 U/L (13-39) 02/22/25 14:25 ALT 13 U/L (7-52) 02/22/25 14:25 Alkaline Phosphatase 58 U/L (34-104) 02/22/25 14:25 Troponin I High Sens 151.3 pg/ml (0-14) H* 02/22/25 18:21 B-Natriuretic Peptide 574 pg/ml (0-100) H 02/22/25 16:31 Total Protein 6.3 gm/dl (6.0-8.3) 02/22/25 14:25 Albumin 3.4 gm/dl (3.4-5.0) 02/22/25 14:25 Globulin 2.9 gm/dl (2.5-4.0) 02/22/25 14:25 Albumin/Globulin Ratio 1.2 (0.9-2) 02/22/25 14:25 Procalcitonin 0.29 ng/ml (0-0.5) 02/22/25 14:25 Urine Color Yellow 02/22/25 Unknown Urine Appearance Clear (Clear) 02/22/25 Unknown Urine pH 6.0 (4.5-7.5) 02/22/25 Unknown Ur Specific [place] 1.016 (1.000-1.030) 02/22/25 Unknown Urine Protein Negative (Negative) 02/22/25 Unknown Urine Glucose (UA) Negative (Negative) 02/22/25 Unknown Urine Ketones Negative (Negative) 02/22/25 Unknown Urine Blood Negative (Negative) 02/22/25 Unknown Urine Nitrite Negative (Negative) 02/22/25 Unknown Urine Bilirubin Negative (Negative) 02/22/25 Unknown Urine Urobilinogen Negative (Negative) 02/22/25 Unknown Ur Leukocyte Esterase Negative (Negative) 02/22/25 Unknown Urine Comment 02/22/25 Unknown Adenovirus (PCR) Not Detected (NotDetected) 02/22/25 Unknown B. pertussis DNA (PCR) Not Detected (NotDetected) 02/22/25 Unknown B.parapertussis DNA PCR Not Detected (NotDetected) 02/22/25 Unknown C. pneumoniae DNA (PCR) Not Detected (NotDetected) 02/22/25 Unknown Coronavirus OC43 (PCR) Not Detected (NotDetected) 02/22/25 Unknown Coronavirus HKU1 (PCR) Not Detected (NotDetected) 02/22/25 Unknown Coronavirus 229E (PCR) Not Detected (NotDetected) 02/22/25 Unknown SARS-CoV-2 (PCR) Not Detected (NotDetected) 02/22/25 Unknown Coronavirus NL63 (PCR) Not Detected (NotDetected) 02/22/25 Unknown Human Metapneumovir PCR Not Detected (NotDetected) 02/22/25 Unknown Influenza Type A (PCR) Not Detected (NotDetected) 02/22/25 Unknown Influenza Type B (PCR) Not Detected (NotDetected) 02/22/25 Unknown M. pneumoniae (PCR) Not Detected (NotDetected) 02/22/25 Unknown Parainfluenza 1 (PCR) Not Detected (NotDetected) 02/22/25 Unknown Parainfluenza 2 (PCR) Not Detected (NotDetected) 02/22/25 Unknown Parainfluenza 3 (PCR) Not Detected (NotDetected) 02/22/25 Unknown Parainfluenza 4 (PCR) Not Detected (NotDetected) 02/22/25 Unknown RSV (PCR) Not Detected (NotDetected) 02/22/25 Unknown Entero/Rhino (PCR) Not Detected (NotDetected) 02/22/25 Unknown Impressions Chest X-Ray 02/22/25 14:24 XR chest 1V portable HISTORY: 64 years-old Female Sepsis COMPARISON: Chest radiograph 02/21/2025, PET/CT 01/25/2025. TECHNIQUE: AP view of the chest FINDINGS: Cardiomediastinal and hilar silhouettes are unchanged. Stable positioning of the left subclavian Jrtkys-o-Fytt catheter. Emphysema with chronic interstitial coarsening. Reticulonodular opacities of the right lung base are stable. 2 cm right lower lobe nodule redemonstrated. IMPRESSION: 1. Emphysema with chronic reticular nodular opacities of the right lung base, likely infectious or inflammatory. 2. 2 cm right lower lobe nodule redemonstrated, further described on the January 25, 2025 PET/CT. ACT 112: Negative or not required by law. The above report was generated using voice recognition software. It may contain grammatical, syntax or spelling errors. Electronically signed by: Adalberto Dong M.D. 02/22/2025 3:17 PM Abdomen/Pelvis CT 02/22/25 17:15 EXAMINATION: CT of the abdomen and pelvis performed after the administration of IV contrast TECHNIQUE: Helical CT images from the lung bases through the symphysis pubis were obtained with contrast. Coronal and sagittal reformatted images were generated at a workstation for further assessment. Dose reduction techniques were achieved by using automatic exposure control and/or adjustment of mA and/or kV according to patient size and/or use of iterative reconstruction technique. COMPARISON: None HISTORY: Abdominal pain FINDINGS: Liver: No suspicious liver lesions. Portal veins appear patent. Gallbladder: No gallstones. No evidence of acute cholecystitis. Spleen: Normal size. Pancreas: Scattered cystic lesions seen within the body of the pancreas. This includes a cyst seen on the coronal image 45 measuring 11 mm. Mildly dilated pancreatic duct, at the head of measuring 4 mm. Adrenal glands: No adrenal nodules. Kidneys: No hydronephrosis or obstructing renal stones. Bladder / Pelvic organs: Unremarkable. Bowel: No bowel obstruction. No abnormal bowel wall thickening. The appendix is unremarkable. Lymph nodes: No retroperitoneal, mesenteric, or pelvic lymphadenopathy. Peritoneum / Retroperitoneum: There is mild free fluid in the pelvis within the peritoneal space. No free air. Vessels: No infrarenal aortic aneurysm. Heavy aortoiliac calcifications. Bones and soft tissues: No suspicious lesion in the bones. IMPRESSION: 1. No acute finding in the abdomen or pelvis. 2. Numerous cystic lesions in the pancreas, as well as slight dilation of the pancreatic duct. Recommend follow-up MRI in 6 to 12 months. Electronically signed by Feliberto Duron 02-22-2025 7:13 PM Chest CTA 02/22/25 17:15 CT pulmonary angiogram with IV contrast History: Chest pain COMPARISON: January 04, 2025 TECHNIQUE: CT angiography of the chest was performed without IV contrast followed by IV contrast, including 3D post processing CTA image reconstruction. Dose reduction techniques were achieved by using automatic exposure control and/or adjustment of mA and/or kV according to patient size and/or use of iterative reconstruction technique. FINDINGS: Diagnostic quality: Adequate There is no evidence for pulmonary embolism. Left chest wall port with catheter tip at the superior atrial caval junction. The heart is not enlarged. There is no pericardial effusion. A prominent subcarinal lymph node is similar to prior section of the, measuring approximately 17 mm in the short axis diameter. Mucoid impaction with complete occlusion of the right. Lower lobe bronchus and distal small airways, which appear enlarged and expanded. A rounded area of soft tissue prominence is seen in the inferior right hilar region measuring 2.6 cm, which appears increased from prior when it measured 2.1 cm. Scattered tiny centrilobular nodules at the right lower lobe appear increased in size and number. There is no pleural effusion. Limited visualized upper abdomen. No destructive osseous changes are seen. Multilevel areas of sclerosis throughout the anterior ribs bilaterally, may be from old injury. Chronic sternal deformity. IMPRESSION: No evidence for pulmonary embolism. Redemonstrated mucoid impaction of the right lower lobe bronchus and distal small airways throughout the right lower lobe. An area of soft tissue density within the right lower lobe hilar region has increased from December 2024. Follow-up recommended, including endoscopy, and/or PET/CT. Electronically signed by Feliberto Duron 02-22-2025 7:06 PM Code Status & VTE Plan VTE Prophylaxis Plan VTE Prophylaxis will be ordered: Yes PG Care Time/CCT Total # of Minutes Spent Total Time Spent with Patient: Total time spent is greater than 50% in coordination of care (as documented) at patient's floor/unit and/or counseling patient: Coding Level of Care Code 50193 INT INP/OBS CARE MIN Diagnoses Fever R50.9 Lung cancer metastatic to brain C34.90; C79.31 Elevated troponin R79.89 Chronic obstructive pulmonary disease J44.9
[2025-02-22] MEDS ORDERED: ALBUTEROL HFA 8 GM INHALER INH PRN (22:59)
[2025-02-22] MEDS: GABAPENTIN 300 MG CAP PO SCH (23:39)
[2025-02-22] MEDS: ENOXAPARIN INJ 40 MG/0.4 ML SYR SQ SCH (23:40)
[2025-02-22] MEDS: BUTALBITAL/ACETAMIN/CAFFEINE TAB PO PRN (23:40)
[2025-02-22] MEDS: SERTRALINE HCL 100 MG TABLET PO SCH (23:40)
[2025-02-22] MEDS: MAGNESIUM SULFATE / D5W 1 GM/100 ML BAG IV ONE (23:41)
[2025-02-22] MEDS: LACTATED RINGER'S 1,000 ML IV SCH (23:41)
[2025-02-22] MEDS: CEFEPIME 2000MG 2,000 MG/20 ML SYR IV SCH (23:44)
[2025-02-23] MEDS: ONDANSETRON INJ 2 MG/ML 2 ML VIAL IV PRN
[2025-02-23] MEDS: VANCOMYCIN HCL 750 MG in SODIUM CHLORIDE 0.9% 250 ML IV SCH (00:20)
[2025-02-23] MEDS ORDERED: HEPARIN 100 UNIT/ML 5ML FLUSH FLUSH PRN (03:32)
[2025-02-23 04:25] LABS: A calco-baum cmplx NotReported Not Detected (NotDetected); Bact fragilis Not Reported Not Detected (NotDetected); Blood Culture Id Panel See PCR Comment (NotDetected); C auris Not Reported Not Detected (NotDetected); Calbicans Not Reported Not Detected (NotDetected); Candida glabrata Not Reported Not Detected (NotDetected); Candida krusei Not Reported Not Detected (NotDetected); Cneoformans/gatti Not Reported Not Detected (NotDetected); Cparapsilosis Not Reported Not Detected (NotDetected); Ctropicalis Not Reported Not Detected (NotDetected); E cloacae compx Not Reported Not Detected (NotDetected); Efaecalis Not Reported Not Detected (NotDetected); Efaecium Not Reported Not Detected (NotDetected); Enterobacterales Not Reported Not Detected (NotDetected); Escherichia coli Not Reported Not Detected (NotDetected); H influenzae Not Reported Not Detected (NotDetected); K aerogenes Not Reported Not Detected (NotDetected); Koxytoca Not Reported Not Detected (NotDetected); Kpneumoniae grp Not Reported Not Detected (NotDetected); Lmonocyt Not Reported Not Detected (NotDetected); N meningitidis Not Reported Not Detected (NotDetected); P aeruginosa Not Reported Not Detected (NotDetected); Proteus spp Not Reported Not Detected (NotDetected); Salmonella spp Not Reported Not Detected (NotDetected); Staph lugdunensis Not Reported Not Detected (NotDetected); Staph spp. Not Reported DETECTED (NotDetected); Staphaureus Not Reported DETECTED (NotDetected); Staphepi Not Reported Not Detected (NotDetected); Staphylococcus spp. DETECTED (NotDetected); Stenmaltophilia Not Reported Not Detected (NotDetected); Strep agal(GrpB) Not Reported Not Detected (NotDetected); Strep pneum Not Reported Not Detected (NotDetected); Strep pyog (GrpA) Not Reported Not Detected (NotDetected); Strep spp Not Reported Not Detected (NotDetected)
[2025-02-23 04:36] LABS: mecAC+MREJ Resistant Gene MRSA DETECTED (NotDetected)
--- NOTE | 2025-02-23 08:15 | Hospitalist Progress Note ---
Date of Service February 23, 2025 Assessment & Plan (1) MRSA bacteremia: (2) Lung cancer metastatic to brain: (3) Elevated troponin: (4) Chronic obstructive pulmonary disease: Plan 64yo female with history of metastatic lung cancer, RA, COPD presenting with fever following chemotherapy. Found to have MRSA bacteremia no apparent source with likely will need Mediport removed #MRSA bacteremia on multiple blood cultures *Possible bloodstream infection due to mediport, POA -check echo, repeat blood cx on 02/24, likely to need mediport removed( placed 02/[address] Davey) this will probably be next week will need clear cultures and PICC placement prior to removal anticipate ID consult once studies complete -Continue empiric antibiotics Vancomycin and Cefepime, cefepime to stop if not Gr negative grow -Continue IVF LR at 80mL/hr x 1L -Tylenol PRN #Lung cancer metastatic to brain - on chemotherapy with fever and MRSA bacteremia. Not neutropenic, will have XRT on 02/24 #Elevated troponin and BNP -Check 2D echo -Repeat troponin trending downward, demand ischemia -No report of chest pain #COPD - not inexacerbation -Albuterol PRN - history of tobacco, offered nicotine patch #Anxiety/Mental Health -Continue Sertraline -Continue Clonazepam PRN at home dose Admission and Anticipated Discharge Date Admission Date: February 22, 2025 Subjective Patient in no distress still having fevers she has no areas of concern for portal of entry for her MRSA bacteremia she does have a recent port placement. She has no complaints of any other skin areas or oropharyngeal areas. She is not short of breath or cough She was educated on plan and understands that she might need to be in the hospital till next Physical Exam Physical Exam: pt is comfortable, no open areas of skin or sores mediport is non tender lungs are with decreased air movement paul at bases Results & Data Results & Data Vital Signs (Past 12 Hours) Vital Signs Temp Pulse Pulse Resp BP BP Pulse Ox 02/22/25 23:17 100.0 F H 81 14 131/72 94 02/22/25 23:10 02/22/25 22:00 81 22 124/75 93 02/22/25 21:18 77 02/22/25 21:15 77 22 129/75 93 O2 Del Method O2 Flow Rate 02/22/25 23:17 Room Air 02/22/25 23:10 Room Air 02/22/25 22:00 Nasal Cannula 2 02/22/25 21:18 02/22/25 21:15 Nasal Cannula 2 Laboratory Results Reviewed CBC reviewed chemistry PG Care Time/CCT Total # of Minutes Spent Total Time Spent with Patient: Total time spent is greater than 50% in coordination of care (as documented) at patient's floor/unit and/or counseling patient: Coding Level of Care Code 51337 SUB INP/OBS CARE 3/50MIN Diagnoses MRSA bacteremia R78.81; B95.62 Lung cancer metastatic to brain C34.90; C79.31 Elevated troponin R79.89 Chronic obstructive pulmonary disease J44.9
[2025-02-23] MEDS: ASPIRIN 81 MG ECTAB PO SCH (08:17)
[2025-02-23 08:18] LABS: Hematocrit (blood only) 29.9 % (37.0-47.0); Hemoglobin 9.7 g/dl (12.0-16.0); Mean Corpuscular Hemoglobin 27.6 pg (25.0-34.0); Mean Corpuscular Volume 84.9 fL (80.0-100.0); Platelet Count 192 K/uL (130-400); RDW Standard Deviation 45.6 fL (36.4-46.3); Red Blood Count 3.52 M/uL (4.20-5.40); White Blood Count 7.39 K/ul (4.8-10.8)
[2025-02-23] MEDS: ROSUVASTATIN CALCIUM 20 MG TAB PO SCH (08:18)
[2025-02-23] MEDS: ACETAMINOPHEN 500 MG TAB PO PRN (08:20)
[2025-02-23 08:39] LABS: Anion Gap 5.0 (3-11); Blood Urea Nitrogen 8.0 mg/dl (6-23); Calcium 7.4 mg/dl (8.6-10.3); Carbon Dioxide 27.0 mmol/L (21-32); Chloride 101.0 mmol/L (98-107); Creatinine Clr Calc Pharmacy 51.6 ml/min; Glucose 140.0 mg/dl (70-99(Fasting)); Magnesium 1.9 mg/dl (1.7-2.4); Potassium 3.8 mmol/L (3.5-5.1); Sodium 133.0 mmol/L (136-145)
[2025-02-23 08:41] LABS: Immature Granulocytes # (auto) 0.04 K/uL (0.01-0.20); Immature Granulocytes % (auto) 0.5 %
--- NOTE | 2025-02-23 09:02 | Pharmacy Report ---
Pharmacy PK ABX Note - Date of Service February 23, 2025 - Assessment and Plan Assessment 64 year old F receiving vancomycin and cefepime for treatment of febrile illness/MRSA bacteremia. Pertinent microbiologic data includes: Positive MRSA Nasal Swab, blood cultures x 2 growing gram-positive cocci clusters (MRSA per BCID2). Pertinent PMH includes COPD and metastatic lung cancer (to brain) on chemotherapy. Reasonable to maintain cefepime for now, but can likely de-escalate in coming days if no additional growth in cultures. Day # 2 of antimicrobial therapy. Plan Vancomycin * Loading dose: 750 mg IV x 1 * Maintenance dose: 750 mg IV every 12 hours * Regimen is predicted to achieve target AUC/CLEO of 400-600 mg/L.hr * Random level ordered for: 02/24/25 Pharmacy will continue to follow and will adjust dose/frequency as necessary. Thank you. Pharmacy has transitioned to AUC monitoring for vancomycin. AUC/CLEO is the preferred PK/PD target and is associated with decreased risk of nephrotoxicity compared to traditional trough targets.
--- NOTE | 2025-02-23 14:11 | XCELERA ---
[id number]
[2025-02-23] MEDS: CEFEPIME 2000MG 2,000 MG/20 ML SYR IV SCH (20:21)
[2025-02-23] MEDS: LACTATED RINGER'S 500 ML IV ONE (22:06)
[2025-02-23] MEDS: LACTATED RINGER'S 1,000 ML IV SCH (22:53)
--- NOTE | 2025-02-24 08:54 | Infectious Disease Consult ---
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 She developed chills and rigors on day of presentation. She presented to Oncology clinic and was found to be febrile, so was sent to the ED for further evaluation. Her port site feels fine with no pain, erythema, or drainage. On presentation, pt was febrile to 38.7 with WBC 12.78. RPP negative. CT A/P with IV contrast with no acute findings. CTA chest with no PE, and redemonstrated mucoid impaction of RLL bronchus and distal small airways throughout the RLL; an area of soft tissue density within RLL hilar region increased from 12/2024. Started on empiric vanc, cefepime. Admission blood cultures returned with MRSA. TTE on 02/23 with no vegetations noted. Pt denies any other hardware/prosthetic devices. Denies joint or back pain. No wounds. Discussion: MRSA bacteremia raising concern for mediport infection. No symptoms suggesting seeding of other sites at this time. Recommendations: - Continue vancomycin for MRSA bacteremia - Discontinued cefepime - Recommend mediport removal and a line holiday - Daily blood cultures until negative - TTE negative, but may need to consider FAUSTINO if persistent bacteremia Please note that ID does not round or write notes over the weekend. If questions or concerns arise, please contact the Infectious Disease Call Center and ask to speak with the covering ID physician. Consultation Information Consultation was provided via telemedicine using two-way real-time interactive telecommunication between the patient and the telemedicine provider. For the duration of the visit, the provider was performing the assessment from a diffe rent facility than the patient. This includesuse of bluetooth stethoscope forauscultationperformed by the telepresenter that the telemedicine provider can hear if described in the physical exam. Transplant Surgeon contact information: Please call [facility] [phone]. (Phone Number For Physician Use Only) After establishing a telemedicine visit, patient was: Patient was verified with two unique identifiers, Patient/authorized rep acknowledged consent and understanding and Gave permission to continue telehealth session Time Spent with Patient: Initial => 55 min History of Present Illness Reason for Consultation: MRSA bacteremia Attending Physician: Juliano Rich History of Present Illness 64 yo F with history of small cell lung cancer diagnosed 01/19/25 with metastasis to the brain (on cisplatin, etoposide, durvalumab), mediport in place, RA, COPD who presented on 02/22 with fever. Her mediport was placed 02/13/25. She developed chills and rigors on day of presentation. She presented to Oncology clinic and was found to be febrile, so was sent to the ED for further evaluation. Pt denied chest pain, cough, SOB, abd pain, N/V, urinary complaints, rashes. Has mild diarrhea which has been going on for some time. Her port site feels fine with no pain, erythema, or drainage. On presentation, pt was febrile to 38.7, hemodyn amically stable. Labs showed WBC 12.78, RPP negative. CT A/P with IV contrast with no acute findings. CTA chest with no PE, and redemonstrated mucoid impaction of RLL bronchus and distal small airways throughout the RLL; an area of soft tissue density within RLL hilar region increased from 12/2024. Started on empiric vanc, cefepime. Admission blood cultures returned with MRSA. TTE on 02/23 with no vegetations noted. Pt denies any other hardware/prosthetic devices. Denies joint or back pain. No wounds. Allergies Allergy/AdvReac Type Severity Reaction Status Date / Time ranitidine Allergy Intermediate eyes Verified 02/22/25 16:59 swelled shut Corticosteroids AdvReac Intermediate Jittery, Verified 02/22/25 16:59 (Glucocorticoids) hyperactivity, can not sleep doxycycline AdvReac Intermediate Vomiting Verified 02/22/25 16:59 tramadol AdvReac Intermediate Hallucinati Verified 02/22/25 16:59 ng Home Medications Medication Instructions Recorded Confirmed Type albuterol sulfate 90 mcg/actuation 1 inh inhalation QID PRN Shortness 04/16/20 02/22/25 History breath activated powder inhaler Of Breath aspirin 81 mg tablet,delayed 81 mg PO QAM 04/16/20 02/22/25 History release (Adult Aspirin Regimen) tofacitinib 11 mg tablet,extended 11 mg PO QAM 04/16/20 02/22/25 History release 24 hr (Xeljanz XR) clonazepam 0.5 mg tablet 0.5 mg PO DAILY PRN Anxiety 12/12/24 02/22/25 History rosuvastatin 20 mg tablet (Crestor) 20 mg PO QAM 12/12/24 02/22/25 History sertraline 100 mg tablet (Zoloft) 100 mg PO HS 12/12/24 02/22/25 History tiotropium 2.5 mcg-olodaterol 2.5 2 puff inhalation DAILY #4 grams 12/13/24 02/22/25 Rx mcg/actuation mist for inhalation (Stiolto Respimat) acetaminophen 500 mg tablet 500 mg PO QID PRN Pain 02/02/25 02/22/25 History (Tylenol Extra Strength) loratadine 10 mg tablet (Claritin) 10 mg PO DAILY PRN Allergy Symptoms 02/02/25 02/22/25 History mecobalamin (vitamin B12) 1,000 1,000 mcg PO DAILY 02/02/25 02/22/25 History mcg chewable tablet oxycodone 5 mg tablet 5 mg PO Q6H PRN pain #12 tabs 02/13/25 02/22/25 Rx gwvstrvizd-hoxwgyiqovtfa-zctsvsfl 1 tab PO BID PRN Headache 02/22/25 02/22/25 History 50 mg-325 mg-40 mg tablet dexamethasone 4 mg tablet 4 mg PO DIRECTED 02/22/25 02/22/25 History gabapentin 300 mg capsule 300 mg PO TID 02/22/25 02/22/25 History olanzapine 2.5 mg tablet 2.5 mg PO DIRECTED 02/22/25 02/22/25 History ondansetron 8 mg disintegrating 8 mg PO Q8H PRN NAUSEA/VOMITING 02/22/25 02/22/25 History tablet prochlorperazine maleate 10 mg 10 mg PO Q6H PRN NAUSEA/VOMITING 02/22/25 02/22/25 History tablet Patient History Medical History Hx MRSA infection (2019) Wound, treated > resolved per pt Lung nodule Hx of rheumatoid arthritis History of anxiety Hx of hyperlipidemia Hx of migraines Lung cancer metastatic to brain Dx early 01/2025 Starting chemo 02/20/25, start XRT 02/21/25 Small cell lung cancer Dx early 01/2025 Starting chemo 02/20/25, start XRT 02/21/25 History of depression Chronic cough History of COPD History of asthma History of arthritis History of anemia Aortic insufficiency Follows with [facility] Chronic bronchitis Fibromyalgia Osteoporosis Surgical History Port-A-Cath in place (02/13/25) Insertion Access Port with Fluoroscopy(Left) - Luis Enrique Davey DO History of diagnostic ultrasound 01/2025, EBUS History of anesthesia reaction Has had hallucinations in past Nausea and vomiting after administration of anesthetic agent History of esophagogastroduodenoscopy (EGD) Hx of colonoscopy History of cataract surgery Bilateral History of surgery Right antecubital area - ruptured artery - then repair of an aneurysm in this same area History of surgery For fractured left clavicle > hardware intact H/O removal of cyst Upper left back H/O: hysterectomy Previous section Family History Mother , in her 70s Appendicitis Septic Diabetes Hypertension Father Medical history unknown Sister Diabetes Alcoholic Daughter Prediabetes Depression Anxiety Other Heart disease Social History Smoking Status: Former smoker Tobacco Type: Cigarettes Age Started Using Tobacco: 11; packs per day: 1; Cigarettes Per Day: 2 packs; Second Hand Exposure: Yes (hx); Do You Dip or Chew Tobacco: No; Hx Alcohol Use: No Hx Substance Use: Yes Prescribed Medications: Former Misuse of Rx Meds, Marijuana and Painkillers Last Used Substance: Unknown Last Used Substance Other:: quit a couple of weeks ago Preferred Language: Burundian Communication Ability: Effective Server Assistant Required: No Beliefs That Will Affect Care: None marital status: Current Living Situation: Alone current occupational status: retired current occupation: Cook How many Children do You have: 1 Feels Safe at Home: Yes Diet: regular caffeine: No during the past year weight has: decreased > 10 lbs Assistive Devices: Cane and Walker Review of System A complete ROS was performed and is negative except as mentioned in the HPI. Physical Exam Physical Exam: GEN: Well-appearing, in NAD. RESP: No increased work of breathing ABD: Soft, non-distended. Non-tender to palpation. EXT: No LE edema. Warm, well-perfused. No joint swelling/erythema/tenderness SKIN: No lesions or rashes on exposed skin. Mediport in L chest without surrounding erythema, tenderness, or drainage NEURO: Alert and oriented. Answers all questions appropriately. Speech not slurred. PSYCH: Normal mood, affect appropriate. Results & Data Vital Signs (Past 12 Hours) Vital Signs Temp Pulse Resp BP Pulse Ox O2 Del Method 02/24/25 08:16 Room Air 02/24/25 07:22 36.8 C 72 16 108/68 93 Room Air 02/24/25 03:48 37.7 C H 116/76 02/23/25 23:40 36.6 C 69 99/60 L 02/23/25 21:42 72 88/54 L
--- NOTE | 2025-02-24 11:06 | Pharmacy Report ---
Pharmacy PK ABX Note - Date of Service February 24, 2025 - Assessment and Plan Assessment 64 year old F receiving vancomycin and cefepime for treatment of febrile illness/MRSA bacteremia. Pertinent microbiologic data includes: Positive MRSA Nasal Swab, blood cultures x 2 growing gram-positive cocci clusters (MRSA per BCID2). ID consulted. Recommending mediport removal. TTE negative. Pertinent PMH includes COPD and metastatic lung cancer (to brain) on chemotherapy. Cefepime has now been discontinued. Day # 3 of antimicrobial therapy. Plan Vancomycin * Current regimen: 750 mg IV every 12 hours * Random level obtained 02/24/25 resulted as 13 mcg/mL. This is predicted to achieve target AUC/CLEO of 400-600 mg/L.hr * Predicted AUC at steady state: ~600 mg/L.hr * Continue 750 mg IV every 12 hours * Repeat random level ordered for: 02/27/25 Pharmacy will continue to follow and will adjust dose/frequency as necessary. Thank you. Pharmacy has transitioned to AUC monitoring for vancomycin. AUC/CLEO is the preferred PK/PD target and is associated with decreased risk of nephrotoxicity compared to traditional trough targets.
[2025-02-24] MEDS: clonazePAM 0.5 MG TAB PO PRN (14:51)
--- NOTE | 2025-02-24 14:56 | Surgery Consultation ---
Date of Consultation February 24, 2025 Assessment & Plan (1) MRSA bacteremia: Agree the port should be removed. We discussed risks as well as options including bleeding infection vascular injury pneumothorax etc. Questions answered. We will plan removal of her access port tomorrow morning. Patient agrees with the plan. (2) Sepsis: (3) Small cell lung cancer: History of Present Illness Attending Physician: Juliano Rich History of Present Illness Consult for left subclavian access port removal. Was placed approximately [address] Jose Manuel Brito. She had treatment this past week and she was having fevers and chills and so she was directly admitted. She has positive blood cultures/bacteremia. Infectious disease recommending removal of the port. Allergies Allergy/AdvReac Type Severity Reaction Status Date / Time ranitidine Allergy Intermediate eyes Verified 02/22/25 16:59 swelled shut Corticosteroids AdvReac Intermediate Jittery, Verified 02/22/25 16:59 (Glucocorticoids) hyperactivity, can not sleep doxycycline AdvReac Intermediate Vomiting Verified 02/22/25 16:59 tramadol AdvReac Intermediate Hallucinati Verified 02/22/25 16:59 ng Home Medications Medication Instructions Recorded Confirmed Type albuterol sulfate 90 mcg/actuation 1 inh inhalation QID PRN Shortness 04/16/20 02/22/25 History breath activated powder inhaler Of Breath aspirin 81 mg tablet,delayed 81 mg PO QAM 04/16/20 02/22/25 History release (Adult Aspirin Regimen) tofacitinib 11 mg tablet,extended 11 mg PO QAM 04/16/20 02/22/25 History release 24 hr (Xeljanz XR) clonazepam 0.5 mg tablet 0.5 mg PO DAILY PRN Anxiety 12/12/24 02/22/25 History rosuvastatin 20 mg tablet (Crestor) 20 mg PO QAM 12/12/24 02/22/25 History sertraline 100 mg tablet (Zoloft) 100 mg PO HS 12/12/24 02/22/25 History tiotropium 2.5 mcg-olodaterol 2.5 2 puff inhalation DAILY #4 grams 12/13/24 02/22/25 Rx mcg/actuation mist for inhalation (Stiolto Respimat) acetaminophen 500 mg tablet 500 mg PO QID PRN Pain 02/02/25 02/22/25 History (Tylenol Extra Strength) loratadine 10 mg tablet (Claritin) 10 mg PO DAILY PRN Allergy Symptoms 02/02/25 02/22/25 History mecobalamin (vitamin B12) 1,000 1,000 mcg PO DAILY 02/02/25 02/22/25 History mcg chewable tablet oxycodone 5 mg tablet 5 mg PO Q6H PRN pain #12 tabs 02/13/25 02/22/25 Rx cpmgywrkoz-kxtfomhtbtcbh-oqrruoqr 1 tab PO BID PRN Headache 02/22/25 02/22/25 History 50 mg-325 mg-40 mg tablet dexamethasone 4 mg tablet 4 mg PO DIRECTED 02/22/25 02/22/25 History gabapentin 300 mg capsule 300 mg PO TID 02/22/25 02/22/25 History olanzapine 2.5 mg tablet 2.5 mg PO DIRECTED 02/22/25 02/22/25 History ondansetron 8 mg disintegrating 8 mg PO Q8H PRN NAUSEA/VOMITING 02/22/25 02/22/25 History tablet prochlorperazine maleate 10 mg 10 mg PO Q6H PRN NAUSEA/VOMITING 02/22/25 02/22/25 History tablet Patient History Medical History Hx MRSA infection (2019) Wound, treated > resolved per pt Lung nodule Hx of rheumatoid arthritis History of anxiety Hx of hyperlipidemia Hx of migraines Lung cancer metastatic to brain Dx early 01/2025 Starting chemo 02/20/25, start XRT 02/21/25 Small cell lung cancer Dx early 01/2025 Starting chemo 02/20/25, start XRT 02/21/25 History of depression Chronic cough History of COPD History of asthma History of arthritis History of anemia Aortic insufficiency Follows with [facility] Chronic bronchitis Fibromyalgia Osteoporosis Surgical History Port-A-Cath in place (02/13/25) Insertion Access Port with Fluoroscopy(Left) - Luis Enrique Davey DO History of diagnostic ultrasound 01/2025, EBUS History of anesthesia reaction Has had hallucinations in past Nausea and vomiting after administration of anesthetic agent History of esophagogastroduodenoscopy (EGD) Hx of colonoscopy History of cataract surgery Bilateral History of surgery Right antecubital area - ruptured artery - then repair of an aneurysm in this same area History of surgery For fractured left clavicle > hardware intact H/O removal of cyst Upper left back H/O: hysterectomy Previous section Family History Mother , in her 70s Appendicitis Septic Diabetes Hypertension Father Medical history unknown Sister Diabetes Alcoholic Daughter Prediabetes Depression Anxiety Other Heart disease Social History Smoking Status: Former smoker Tobacco Type: Cigarettes Age Started Using Tobacco: 11; packs per day: 1; Cigarettes Per Day: 2 packs; Second Hand Exposure: Yes (hx); Do You Dip or Chew Tobacco: No; Hx Alcohol Use: No Hx Substance Use: Yes Prescribed Medications: Former Misuse of Rx Meds, Marijuana and Painkillers Last Used Substance: Unknown Last Used Substance Other:: quit a couple of weeks ago Preferred Language: Uzbek Communication Ability: Effective Global Technical Writer Required: No Beliefs That Will Affect Care: None marital status: Current Living Situation: Alone current occupational status: retired current occupation: Cook How many Children do You have: 1 Feels Safe at Home: Yes Diet: regular caffeine: No during the past year weight has: decreased > 10 lbs Assistive Devices: Cane and Walker Physical Exam Constitutional: WD/WN, vitals as above no acute distress and not ill appearing Eyes: PERRL, conjunctivae normal, anicteric sclerae EOM intact bilaterally ENMT: external ear and nose normal, oropharynx normal Ears: no hearing impairment Neck: trachea midline, no thyromegaly Cardiovascular: Rate/Rhythm: regular rate and regular rhythm Chest (Breasts): Additional Comments: Left subclavian access port in place. Mildly tender. Gastrointestinal (Abdomen): normal bowel sounds, soft, nontender, no hepatosplenomegaly Skin: no rashes, warm and dry Psychiatric: Orientation: alert, oriented x 3 and cooperative Results & Data Vital Signs (Past 12 Hours) Vital Signs Temp Pulse Resp BP Pulse Ox O2 Del Method 02/24/25 08:16 Room Air 02/24/25 07:22 36.8 C 72 16 108/68 93 Room Air 02/24/25 03:48 37.7 C H 116/76 PG Care Time/CCT Total # of Minutes Spent Total Time Spent with Patient: Total time spent is greater than 50% in coordination of care (as documented) at patient's floor/unit and/or counseling patient: Coding Level of Care Code 54159 INT INP/OBS CARE 1/40MIN Diagnoses MRSA bacteremia R78.81; B95.62 Sepsis A41.9 Sepsis acute organ dysfunction status: with acute organ dysfunction Sepsis type: sepsis due to unspecified organism Severe sepsis acute organ dysfunction type: acute respiratory failure Small cell lung cancer C34.90 (2) Sepsis Sepsis acute organ dysfunction status: with acute organ dysfunction Sepsis type: sepsis due to unspecified organism Severe sepsis acute organ dysfunction type: acute respiratory failure
--- NOTE | 2025-02-24 23:23 | Hospitalist Progress Note ---
Date of Service February 24, 2025 Assessment & Plan (1) MRSA bacteremia: (2) Lung cancer metastatic to brain: (3) Elevated troponin: (4) Chronic obstructive pulmonary disease: Plan 64yo female with history of metastatic lung cancer, RA, COPD presenting with fever following chemotherapy. Found to have MRSA bacteremia no apparent source with likely will need Mediport removed #MRSA bacteremia on multiple blood cultures *Possible bloodstream infection due to mediport, POA will have line holiday and will remove mediport. consulted Gen surgery, plan for tomorrow. -check echo, repeat blood cx on 02/24, will need clear cultures and PICC placement prior to removal consulted ID. -Continue empiric antibiotics Vancomycin and Cefepime, cefepime to stop if not Gr negative grow -Continue IVF LR at 80mL/hr x 1L -Tylenol PRN #Lung cancer metastatic to brain - on chemotherapy with fever and MRSA bacteremia. Not neutropenic, will have XRT on 02/24 #Elevated troponin and BNP -Check 2D echo -Repeat troponin trending downward, demand ischemia -No report of chest pain #COPD - not inexacerbation -Albuterol PRN - history of tobacco, offered nicotine patch #Anxiety/Mental Health -Continue Sertraline -Continue Clonazepam PRN at home dose Admission and Anticipated Discharge Date Admission Date: February 22, 2025 Subjective Patient reports no new symptoms. Physical Exam Physical Exam: pt is comfortable, no open areas of skin or sores lungs are with decreased air movement paul at [employer] Results & Data Results & Data Vital Signs (Past 12 Hours) Vital Signs Temp Pulse Resp BP Pulse Ox O2 Del Method 02/24/25 20:00 36.5 C 77 17 105/68 94 Room Air 02/24/25 15:18 36.8 C 69 16 119/65 95 Room Air PG Care Time/CCT Total # of Minutes Spent Total Time Spent with Patient: Total time spent is greater than 50% in coordination of care (as documented) at patient's floor/unit and/or counseling patient: Coding Level of Care Code 49720 SUB INP/OBS CARE 3/50MIN Diagnoses MRSA bacteremia R78.81; B95.62 Lung cancer metastatic to brain C34.90; C79.31 Elevated troponin R79.89 Chronic obstructive pulmonary disease J44.9
[2025-02-25 07:03] LABS: Hematocrit (blood only) 30.9 % (37.0-47.0); Hemoglobin 10.4 g/dl (12.0-16.0); Mean Corpuscular Hemoglobin 28.0 pg (25.0-34.0); Mean Corpuscular Volume 83.3 fL (80.0-100.0); Platelet Count 217 K/uL (130-400); RDW Standard Deviation 43.4 fL (36.4-46.3); Red Blood Count 3.71 M/uL (4.20-5.40); White Blood Count 4.56 K/ul (4.8-10.8)
--- NOTE | 2025-02-25 07:09 | History & Physical Bridge Note ---
Date of Service February 25, 2025 History & Physical Bridge Note I have examined the patient, reviewed the History & Physical and in the interval since the performance of the History & Physical I have noted the following changes of clinical significance: no changes noted
[2025-02-25 07:27] LABS: Anion Gap 8.0 (3-11); Blood Urea Nitrogen 21.0 mg/dl (6-23); Calcium 8.4 mg/dl (8.6-10.3); Carbon Dioxide 28.0 mmol/L (21-32); Chloride 100.0 mmol/L (98-107); Creatinine Clr Calc Pharmacy 40.2 ml/min; Glucose 91.0 mg/dl (70-99(Fasting)); Potassium 4.1 mmol/L (3.5-5.1); Sodium 136.0 mmol/L (136-145)
--- NOTE | 2025-02-25 08:24 | Anesthesiology Consultation ---
Date of Service February 25, 2025 Assessment & Plan Chart Review Chart Review: Acceptable Risk for Surgery and Patient NOT seen in Pre Admission Testing Consults Requested none ASA ASA4 Proposed Anesthesia Anesthesia Type: MAC History Surgery Operation Date: 02/25/25 10:30 Proposed Procedures p Port Removal - Jake Mistry DO Height/Weight Height: 4 ft 11 in Weight: 40.8 kg Allergies Allergy/AdvReac Type Severity Reaction Status Date / Time ranitidine Allergy Intermediate eyes Verified 02/22/25 16:59 swelled shut Corticosteroids AdvReac Intermediate Jittery, Verified 02/22/25 16:59 (Glucocorticoids) hyperactivity, can not sleep doxycycline AdvReac Intermediate Vomiting Verified 02/22/25 16:59 tramadol AdvReac Intermediate Hallucinati Verified 02/22/25 16:59 ng Medications Home Medications Medication Instructions Recorded Confirmed Last Taken albuterol sulfate 90 mcg/actuation 1 inh inhalation QID PRN Shortness 04/16/20 02/22/25 02/13/25 09:15 breath activated powder inhaler Of Breath aspirin 81 mg tablet,delayed 81 mg PO QAM 04/16/20 02/22/25 02/08/25 release (Adult Aspirin Regimen) tofacitinib 11 mg tablet,extended 11 mg PO QAM 04/16/20 02/22/25 02/21/25 release 24 hr (Xeljanz XR) clonazepam 0.5 mg tablet 0.5 mg PO DAILY PRN Anxiety 12/12/24 02/22/25 02/22/25 THIS AM rosuvastatin 20 mg tablet (Crestor) 20 mg PO QAM 12/12/24 02/22/25 02/22/25 sertraline 100 mg tablet (Zoloft) 100 mg PO HS 12/12/24 02/22/25 02/21/25 tiotropium 2.5 mcg-olodaterol 2.5 2 puff inhalation DAILY #4 grams 12/13/24 02/22/25 02/22/25 mcg/actuation mist for inhalation (Stiolto Respimat) acetaminophen 500 mg tablet 500 mg PO QID PRN Pain 02/02/25 02/22/25 02/13/25 05:00 (Tylenol Extra Strength) loratadine 10 mg tablet (Claritin) 10 mg PO DAILY PRN Allergy Symptoms 02/02/25 02/22/25 2 Weeks Ago ~01/30/25 mecobalamin (vitamin B12) 1,000 1,000 mcg PO DAILY 02/02/25 02/22/25 02/22/25 mcg chewable tablet oxycodone 5 mg tablet 5 mg PO Q6H PRN pain #12 tabs 02/13/25 02/22/25 02/22/25 THIS AM [id number] 1 tab PO BID PRN Headache 02/22/25 02/22/25 Unknown 50 mg-325 mg-40 mg tablet dexamethasone 4 mg tablet 4 mg PO DIRECTED 02/22/25 02/22/25 Unknown gabapentin 300 mg capsule 300 mg PO TID 02/22/25 02/22/25 02/22/25 08:00 olanzapine 2.5 mg tablet 2.5 mg PO DIRECTED 02/22/25 02/22/25 Unknown ondansetron 8 mg disintegrating 8 mg PO Q8H PRN NAUSEA/VOMITING 02/22/25 02/22/25 02/22/25 tablet THIS AM prochlorperazine maleate 10 mg 10 mg PO Q6H PRN NAUSEA/VOMITING 02/22/25 02/22/25 Unknown tablet Active Medications Generic Name Dose Route Start Last Admin Trade Name Freq PRN Reason Stop Dose Admin Acetaminophen 500 mg 02/22/25 22:45 02/25/25 07:43 Acetaminophen 500 Mg Tab PO 03/24/25 22:44 500 mg QID PRN Administration Pain Acetaminophen/Butalbital/Caffeine 1 tab 02/22/25 22:45 02/24/25 21:42 Butalbital/Acetamin/Caffeine Tab PO 03/24/25 22:44 1 tab BID PRN Administration Headache Aspirin 81 mg 02/23/25 09:00 02/25/25 07:43 Aspirin 81 Mg Ectab PO 03/25/25 08:59 81 mg QAM ASPEN Administration Clonazepam 0.5 mg 02/22/25 22:45 02/24/25 14:51 Clonazepam 0.5 Mg Tab PO 03/24/25 22:44 0.5 mg DAILY PRN Administration Anxiety Dexamethasone 4 mg 02/24/25 09:55 02/24/25 12:35 Dexamethasone 4 Mg Tab PO 03/26/25 09:54 4 mg ONE PRN Administration one hour prior to radiation tx Enoxaparin Sodium 40 mg 02/22/25 23:00 02/23/25 20:21 Enoxaparin Inj 40 Mg/0.4 Ml Syr SQ 03/24/25 22:59 40 mg HS ASPEN Administration Gabapentin 300 mg 02/22/25 22:45 02/25/25 07:43 Gabapentin 300 Mg Cap PO 03/24/25 22:44 300 mg TID ASPEN Administration Vancomycin HCl 750 mg/ Sodium 265 mls @ 200 mls/hr 02/23/25 00:00 02/25/25 02:06 Chloride IV 03/09/25 00:00 Infused Q12H ASPEN Infusion Protocol Ondansetron HCl 4 mg 02/22/25 22:45 02/23/25 00:00 Ondansetron Inj 2 Mg/Ml 2 Ml Vial IV 03/24/25 22:44 4 mg Q6H PRN Administration Nausea And Vomiting Rosuvastatin Calcium 20 mg 02/23/25 09:00 02/25/25 07:43 Rosuvastatin Calcium 20 Mg Tab PO 03/25/25 08:59 20 mg QAM ASPEN Administration Sertraline HCl 100 mg 02/22/25 22:45 02/24/25 21:42 Sertraline Hcl 100 Mg Tablet PO 03/24/25 22:44 100 mg HS ASPEN Administration Past Medical History Medical History Hx MRSA infection (2019) Wound, treated > resolved per pt Lung nodule Hx of rheumatoid arthritis History of anxiety Hx of hyperlipidemia Hx of migraines Lung cancer metastatic to brain Dx early 01/2025 Starting chemo 02/20/25, start XRT 02/21/25 Small cell lung cancer Dx early 01/2025 Starting chemo 02/20/25, start XRT 02/21/25 History of depression Chronic cough History of COPD History of asthma History of arthritis History of anemia Aortic insufficiency Follows with [facility] Chronic bronchitis Fibromyalgia Osteoporosis + tobacco ASCVD Ao Anemia presently undergoing chemotx Exercise / Class Metabolic Activity III < 4 Walking/Shop/Light housework Past Family History Family History Mother , in her 70s Appendicitis Septic Diabetes Hypertension Father Medical history unknown Sister Diabetes Alcoholic Daughter Prediabetes Depression Anxiety Other Heart disease Past Surgical History Surgical History Port-A-Cath in place (02/13/25) Insertion Access Port with Fluoroscopy(Left) - Luis Enrique Davey DO History of diagnostic ultrasound 01/2025, EBUS History of anesthesia reaction Has had hallucinations in past Nausea and vomiting after administration of anesthetic agent History of esophagogastroduodenoscopy (EGD) Hx of colonoscopy History of cataract surgery Bilateral History of surgery Right antecubital area - ruptured artery - then repair of an aneurysm in this same area History of surgery For fractured left clavicle > hardware intact H/O removal of cyst Upper left back H/O: hysterectomy Previous section Past Anesthesia History No Hx of Anesthesia Complications and No Family Hx of Anesthesia Complications History of PONV No Hx of PONV and No Hx of Motion Sickness Social History Smoking Status: Former smoker Smoking cigarettes per day: 2 packs Do You Dip or Chew Tobacco: No Smoking End Date: "couple of weeks ago" Hx Alcohol Use: No Hx Substance Use: Yes substance use type: former substance user and marijuana Last Used Substance: Unknown Last Used Substance Other:: quit a couple of weeks ago Physical Exam Vital Signs Last Vital Signs Temp 36.6 C 02/25/25 00:37 Pulse 77 02/24/25 20:00 Resp 17 02/24/25 20:00 BP 125/80 02/25/25 00:37 Pulse Ox 94 02/24/25 20:00 O2 Del Method Room Air 02/24/25 20:00 O2 Flow Rate 2 02/22/25 22:00 Testing Laboratory Results 02/25/25 06:07 02/25/25 06:07 PT 10.4 Seconds (9.0-12.0) 02/22/25 14:25 INR 1.0 (0.9-1.1) 02/22/25 14: APTT 25 Seconds (21-31) 02/22/25 14:25 Urine Color Yellow 02/22/25 Unknown Urine Appearance Clear (Clear) 02/22/25 Unknown Urine pH 6.0 (4.5-7.5) 02/22/25 Unknown Ur Specific [place] 1.016 (1.000-1.030) 02/22/25 Unknown Urine Protein Negative (Negative) 02/22/25 Unknown Urine Glucose (UA) Negative (Negative) 02/22/25 Unknown Urine Ketones Negative (Negative) 02/22/25 Unknown Urine Nitrite Negative (Negative) 02/22/25 Unknown Ur Leukocyte Esterase Negative (Negative) 02/22/25 Unknown 02/22/25 15:14 Aerobic Blood Culture - Final Blood Staph aureus MRSA Anaerobic Blood Culture - Final 02/22/25 14:43 Aerobic Blood Culture - Final Blood Staph aureus MRSA Anaerobic Blood Culture - Final Staph aureus MRSA Electrocardiogram Date: 02/22/25 Findings: + NSR @ (@ 88) Chest X-Ray Date: 02/22/25 Findings: + infiltrate (right lung base nodular opacity) and + mass (RLL nodule 2 cm) Echocardiogram Date: 02/23/25 EF: 60% LV Function: normal RWMA: + none Other Findings: + diastolic dysfunction (grade 1) Valvular Disease: + no significant valvular disease MAC-moderate TR-mild RV sys [id number] Torr
[2025-02-25] MEDS ORDERED: MIDAZOLAM HCL 1 MG/ML 2ML VIAL ONE (12:17)
[2025-02-25] MEDS ORDERED: PROPOFOL IV EMULSION 10 MG/ML 20 ML VIAL IV ONE ×2 (12:17→12:18)
[2025-02-25] MEDS ORDERED: LIDOCAINE 2% 2 ML VIAL/AMP(20MG/ML) INFIL ONE (12:17)
[2025-02-25] MEDS ORDERED: ATROPINE SULFATE 0.1 MG/ML 10ML SYR IV PRN (12:19)
[2025-02-25] MEDS ORDERED: PROMETHAZINE HCL 6.25 MG in SODIUM CHLORIDE 0.9% 50 ML IV PRN (12:19)
[2025-02-25] MEDS ORDERED: FLUMAZENIL 0.1 MG/1 ML 10 ML VIAL IV PRN (12:19)
[2025-02-25] MEDS ORDERED: ONDANSETRON INJ 2 MG/ML 2 ML VIAL IV PRN (12:19)
[2025-02-25] MEDS ORDERED: NALOXONE HCL 0.4 MG/1 ML VIAL/CARP IV PRN (12:19)
[2025-02-25] MEDS: BUPIVACAINE/EPINEPHRINE 0.5% MPF 1:200,000 30 ML VIAL ONE (12:58)
[2025-02-25] MEDS: BACITRACIN OINT 14 GM TUBE ONE (12:59)
--- NOTE | 2025-02-25 13:22 | Anesthesiology Progress Note ---
Date of Service February 25, 2025 Anesthesia Post Procedure Vital Signs Vital Signs: Temp Pulse Resp BP Pulse Ox O2 Del Method 02/25/25 13:10 24 126/67 94 Room Air 02/25/25 13:04 36.4 C L 16 120/74 97 Room Air 02/25/25 08:47 36.6 C 83 16 117/63 93 Room Air 02/25/25 07:15 Room Air 02/25/25 00:37 36.6 C 125/80 02/24/25 20:00 36.5 C 77 17 105/68 94 Room Air 02/24/25 19:25 Room Air 02/24/25 15:18 36.8 C 69 16 119/65 95 Room Air Pain Intensity Head: Pain Intensity: 2 Transfer of Care Handoff Completed per policy Notes Mental Status: alert / awake / arousable Patient Amnestic to Procedure: Yes Nausea / Vomiting: adequately controlled Pain: adequately controlled Airway Patency, RR, SpO2: stable & adequate BP & HR: stable & adequate Hydration State: stable & adequate Anesthetic Complications: no major complications apparent
--- NOTE | 2025-02-25 13:27 | Operative Report ---
PG Post Operative Report Pre & Post Diagnosis Operation Date: 02/25/25 10:30 Pre-Op Diagnosis: Infected infusaport Post-Op Diagnosis: Infected infusaport I identified the patient and participated in the time-out.: Yes Procedure Operation Date: 02/25/25 10:30 Actual Procedures p Port Removal(Left) - Jake Mistry DO Surgeon Jake Mistry DO Branch Examiner OR staff Estimated Blood Loss 5 Findings Consistent with Post-Op Diagnosis Specimens catheter tip for gram stain/culture Description of Procedure After informed consent was obtained the patient was taken the operating room and placed in supine position. IV sedation was administered by anesthesia and titrated to effect. After adequate sedation was obtained the entire chest was sterilely prepped and draped in usual fashion. I began by using Marcaine with epinephrine to create a small skin wheal around the existing incision. 15 blade scalpel was then used to reopen the incision. This did release what appeared to be sterile seroma. I suctioned this out. I took down the capsule around the port using cautery. There were 2 stay sutures which I divided using suture scissors. I was then able to easily with gentle traction remove the catheter and held pressure for several minutes. There was adequate hemostasis. I thoroughly irrigated the wound. I closed it with 3-0 Prolene in simple erupted fashion. Antibiotic ointment gauze and tape were used as a dressing. The patient was awakened and transferred to recovery in stable condition. I attest to the content of the Intraoperative Record and any orders documented therein. Any exceptions are noted below.
[2025-02-25] MEDS: SODIUM CHLORIDE 0.9% 1,000 ML IV SCH (15:27)
[2025-02-25] MEDS: MIDODRINE HCL 2.5 MG TAB PO STA (16:57)
--- NOTE | 2025-02-25 23:09 | Hospitalist Progress Note ---
Date of Service February 25, 2025 Assessment & Plan (1) MRSA bacteremia: (2) Lung cancer metastatic to brain: (3) Elevated troponin: (4) Chronic obstructive pulmonary disease: Plan 64yo female with history of metastatic lung cancer, RA, COPD presenting with fever following chemotherapy. Found to have MRSA bacteremia no apparent source with likely will need Mediport removed #MRSA bacteremia on multiple blood cultures *Possible bloodstream infection due to mediport, POA s/p removal of mediport on 02/25. Blood pressure has been soft today, ordered IVF boluses of 2 liters and then ordered omne time dose of midodrine -check echo, repeat blood cx on 02/24, will need clear cultures and PICC placement prior to removal consulted ID. -Continue empiric antibiotics Vancomycin and Cefepime, cefepime to stop if not Gr negative grow -Continue IVF LR at 80mL/hr x 1L -Tylenol PRN #Lung cancer metastatic to brain - on chemotherapy with fever and MRSA bacteremia. Not neutropenic, completed a session of XRT on 02/24 -had one dose of corticosteroid #Elevated troponin and BNP -Check 2D echo -Repeat troponin trending downward, demand ischemia -No report of chest pain #COPD - not inexacerbation -Albuterol PRN - history of tobacco, offered nicotine patch #Anxiety/Mental Health -Continue Sertraline -Continue Clonazepam PRN at home dose Admission and Anticipated Discharge Date Admission Date: February 22, 2025 Subjective 64 yo female reports feeling lightheaded and weak today. She has no new complaints. Physical Exam Physical Exam: pt is comfortable, no open areas of skin or sores lungs are with decreased air movement paul at bases Results & Data Results & Data Vital Signs (Past 12 Hours) Vital Signs Temp Pulse Resp BP Pulse Ox O2 Del Method 02/25/25 20:18 36.9 C 68 17 120/60 95 Room Air 02/25/25 17:29 76 110/65 02/25/25 16:35 92/54 L 02/25/25 16:25 90/51 L 02/25/25 16:00 86/55 L 02/25/25 15:16 90/47 L 02/25/25 14:57 93/52 L 95 Room Air 02/25/25 14:43 36.4 C L 82 16 98/59 L 91 Room Air 02/25/25 13:34 36.6 C 67 16 123/69 95 Room Air 02/25/25 13:20 36.6 C 16 122/75 95 Room Air 02/25/25 13:10 24 126/67 94 Room Air 02/25/25 13:04 36.4 C L 16 120/74 97 Room Air PG Care Time/CCT Total # of Minutes Spent Total Time Spent with Patient: Total time spent is greater than 50% in coordination of care (as documented) at patient's floor/unit and/or counseling patient: Coding Level of Care Code 26414 SUB INP/OBS CARE 3/50MIN Diagnoses MRSA bacteremia R78.81; B95.62 Lung cancer metastatic to brain C34.90; C79.31 Elevated troponin R79.89 Chronic obstructive pulmonary disease J44.9
[2025-02-26 06:08] LABS: Hematocrit (blood only) 28.6 % (37.0-47.0); Hemoglobin 9.5 g/dl (12.0-16.0); Immature Granulocytes # (auto) 0.07 K/uL (0.01-0.20); Immature Granulocytes % (auto) 1.6 %; Mean Corpuscular Hemoglobin 27.9 pg (25.0-34.0); Mean Corpuscular Volume 84.1 fL (80.0-100.0); Platelet Count 224 K/uL (130-400); RDW Standard Deviation 43.8 fL (36.4-46.3); Red Blood Count 3.40 M/uL (4.20-5.40); White Blood Count 4.47 K/ul (4.8-10.8)
--- NOTE | 2025-02-26 06:15 | Surgery Progress Note ---
Date of Service February 26, 2025 Assessment & Plan (1) MRSA bacteremia: Plan: Patient is POD#! s/p left access port removal by Dr. Mistry -Patient feels well this morning. Surgical site c/d/i without overlying signs of infection. -Daily dressing changes per nursing staff -Continue medical management per primary team. Surgery will sign off, please re- call with any questions or concerns (2) Sepsis: (3) Small cell lung cancer: Admission and Anticipated Discharge Date Admission Date: February 22, 2025 Subjective Patient seen and examined this morning, states she feels well. VSS, afebrile Physical Exam Constitutional: WD/WN, vitals as above Respiratory: normal respiratory effort, lungs clear to auscultation Cardiovascular: Rate/Rhythm: regular rate Chest (Breasts): Additional Comments: Left chest with previous port site with surgical dressing in place No overlying signs of erythema or warmth Psychiatric: A+Ox3, euthymic affect Results & Data Vital Signs (Past 12 Hours) Vital Signs Temp Pulse Resp BP Pulse Ox O2 Del Method 02/26/25 02:18 36.6 C 81 18 133/77 96 Room Air 02/25/25 20:18 36.9 C 68 17 120/60 95 Room Air 02/25/25 20:00 Room Air PG Care Time/CCT Total # of Minutes Spent Total Time Spent with Patient: Total time spent is greater than 50% in coordination of care (as documented) at patient's floor/unit and/or counseling patient: Coding [place] [address] Post Operative Follow-Up Patient Type Established Medical Decision Making Straight Forward Diagnoses MRSA bacteremia R78.81; B95.62 Sepsis A41.9 Sepsis acute organ dysfunction status: with acute organ dysfunction Sepsis type: sepsis due to unspecified organism Severe sepsis acute organ dysfunction type: acute respiratory failure Small cell lung cancer C34.90 (2) Sepsis Sepsis acute organ dysfunction status: with acute organ dysfunction Sepsis type: sepsis due to unspecified organism Severe sepsis acute organ dysfunction type: acute respiratory failure
[2025-02-26 06:26] LABS: Anion Gap 6.0 (3-11); Blood Urea Nitrogen 24.0 mg/dl (6-23); Calcium 8.0 mg/dl (8.6-10.3); Carbon Dioxide 28.0 mmol/L (21-32); Chloride 104.0 mmol/L (98-107); Creatinine Clr Calc Pharmacy 36.6 ml/min; Glucose 133.0 mg/dl (70-99(Fasting)); Potassium 3.6 mmol/L (3.5-5.1); Sodium 138.0 mmol/L (136-145)
--- NOTE | 2025-02-26 11:18 | Pharmacy Report ---
Pharmacy PK ABX Note - Date of Service February 26, 2025 - Assessment and Plan Assessment 02/26: * A-port removed 02/25 and tip culture growing S. aureus (sensitivity pending). Blood cultures from 02/22 with 3/3 MRSA. Repeat from 02/24 negative @ 48 hours * SCr has had steady increase, 1.00 today. Random level obtained today (although closer to peak). Will adjust dose today to maintain target AUC/CLEO. Monitor SCr * Day #6 of antimicrobial therapy 64 year old F receiving vancomycin and cefepime for treatment of febrile illness/MRSA bacteremia. Pertinent microbiologic data includes: Positive MRSA Nasal Swab, blood cultures x 2 growing gram-positive cocci clusters (MRSA per BCID2). ID consulted. Recommending mediport removal. TTE negative. Pertinent PMH includes COPD and metastatic lung cancer (to brain) on chemotherapy. Cefepime has now been discontinued. Day # 3 of antimicrobial therapy. Plan Vancomycin * Current regimen: 750 mg IV every 12 hours * Random level obtained 02/26/25 resulted as 28.4 mcg/mL- this was obtained ~ 2 hours after infusion completed (0000 dose was adjusted to 0600 without a change in random level time). This does predict >600 AUC/CLEO, will adjust frequency. * Adjust to 750 mg IV every 18 hours * Repeat random level to be determined pending renal function tomorrow Pharmacy will continue to follow and will adjust dose/frequency as necessary. Thank you. Pharmacy has transitioned to AUC monitoring for vancomycin. AUC/CLEO is the preferred PK/PD target and is associated with decreased risk of nephrotoxicity compared to traditional trough targets.
--- NOTE | 2025-02-26 22:43 | Hospitalist Progress Note ---
Date of Service February 26, 2025 Assessment & Plan (1) MRSA bacteremia: (2) Lung cancer metastatic to brain: (3) Elevated troponin: (4) Chronic obstructive pulmonary disease: Plan 64yo female with history of metastatic lung cancer, RA, COPD presenting with fever following chemotherapy. Found to have MRSA bacteremia no apparent source with likely will need Mediport removed #MRSA bacteremia on multiple blood cultures *Possible bloodstream infection due to mediport, POA s/p removal of mediport on 02/25. Blood pressure has been soft today, ordered IVF boluses of 2 liters and then ordered omne time dose of midodrine -check echo, repeat blood cx on 02/24, will need clear cultures and PICC placement prior to removal consulted ID. -Continue empiric antibiotics Vancomycin and Cefepime, cefepime to stop if not Gr negative grow -Continue IVF LR at 80mL/hr x 1L -Tylenol PRN -mediport now growing MRSA, repeat blood cultures ar e negative at 48 hour eugene. reordered blood culture today. anticipate discharge in 48 hours. #Lung cancer metastatic to brain - on chemotherapy with fever and MRSA bacteremia. Not neutropenic, completed a session of XRT on 02/24 -had one dose of corticosteroid #Elevated troponin and BNP -Check 2D echo -Repeat troponin trending downward, demand ischemia -No report of chest pain #COPD - not inexacerbation -Albuterol PRN - history of tobacco, offered nicotine patch #Anxiety/Mental Health -Continue Sertraline -Continue Clonazepam PRN at home dose Admission and Anticipated Discharge Date Admission Date: February 22, 2025 Subjective 64 yo female reports no new symptoms. Physical Exam Physical Exam: pt is comfortable, no open areas of skin or sores lungs are with decreased air movement paul at bases Results & Data Results & Data Vital Signs (Past 12 Hours) Vital Signs Temp Pulse Resp BP Pulse Ox O2 Del Method 02/26/25 21:08 36.9 C 78 20 115/69 95 Room Air 02/26/25 14:27 36.6 C 89 16 126/64 95 Room Air PG Care Time/CCT Total # of Minutes Spent Total Time Spent with Patient: Total time spent is greater than 50% in coordination of care (as documented) at patient's floor/unit and/or counseling patient: Coding Level of Care Code 34860 SUB INP/OBS CARE 3/50MIN Diagnoses MRSA bacteremia R78.81; B95.62 Lung cancer metastatic to brain C34.90; C79.31 Elevated troponin R79.89 Chronic obstructive pulmonary disease J44.9
[2025-02-26] MEDS: VANCOMYCIN HCL 750 MG in SODIUM CHLORIDE 0.9% 250 ML IV SCH (23:45)
[2025-02-27 07:12] LABS: Hematocrit (blood only) 31.5 % (37.0-47.0); Hemoglobin 10.1 g/dl (12.0-16.0); Mean Corpuscular Hemoglobin 27.0 pg (25.0-34.0); Mean Corpuscular Volume 84.2 fL (80.0-100.0); Platelet Count 262 K/uL (130-400); RDW Standard Deviation 43.7 fL (36.4-46.3); Red Blood Count 3.74 M/uL (4.20-5.40); White Blood Count 4.34 K/ul (4.8-10.8)
[2025-02-27 07:29] LABS: Anion Gap 8.0 (3-11); Blood Urea Nitrogen 15.0 mg/dl (6-23); Calcium 8.6 mg/dl (8.6-10.3); Carbon Dioxide 29.0 mmol/L (21-32); Chloride 102.0 mmol/L (98-107); Creatinine Clr Calc Pharmacy 39.8 ml/min; Glucose 108.0 mg/dl (70-99(Fasting)); Potassium 4.0 mmol/L (3.5-5.1); Sodium 139.0 mmol/L (136-145)
--- NOTE | 2025-02-27 09:25 | Infectious Disease Progress Nt ---
Date of Service February 27, 2025 Assessment & Plan (1) MRSA bacteremia: (2) Lung cancer metastatic to brain: Plan ID Problem List: #MRSA bacteremia #Mediport in place, s/p removal on 02/25 #Small cell lung cancer with metastasis to brain #Antibiotic allergy to: doxy (vomiting) Impression: Allyson Ceron is a 64 yo F with history of small cell lung cancer diagnosed 01/19/25 with metastasis to the brain (on cisplatin, etoposide, durvalumab), mediport placed 02/13/25, RA, COPD who presented on 02/22 with fever, found to have MRSA bacteremia. She developed chills and rigors on day of presentation. She presented to Oncology clinic and was found to be febrile, so was sent to the ED for further evaluation. Her port site feels fine with no pain, erythema, or drainage. On presentation, pt was febrile to 38.7 with WBC 12.78. RPP negative. CT A/P with IV contrast with no acute findings. CTA chest with no PE, and redemonstrated mucoid impaction of RLL bronchus and distal small airways throughout the RLL; an area of soft tissue density within RLL hilar region increased from 12/2024. Started on empiric vanc, cefepime. Admission blood cultures returned with MRSA. TTE on 02/23 with no vegetations noted. Pt denies any other hardware/prosthetic devices. Denies joint or back pain. No wounds. Discussion Patient presents with MRSA bacteremia, raising concern for mediport infection. No symptoms suggesting seeding of other sites at this time. Port removed on 02/25 with catheter tip Cx + MRSA, and would recommend a 48-72h line holiday if able. TTE negative, but may need to consider FAUSTINO if persistent bacteremia; repeat BCx from 02/24 and 02/26 remain NGTD. Although the initial bacteremia was high-grade, the patient cleared BCx quickly and the suspected source (port) was removed, with negative TTE. Would favor a 4-week course of IV abx for treatment. Can change to daptomycin for OPAT purposes (would recommend to hold pts home rosuvastatin while on daptomycin). The patient last received systemic chemotherapy at the beginning of January, and is not neutropenic. Had stopped cefepime given that only MRSA grew in cultures. Recommendations: - Change to daptomycin 275 mg IV q24h (~7 mg/kg) to complete a 4-week course for MRSA bacteremia (02/2603/25/25) via PICC - Would hold home rosuvastatin while on daptomycin - S/p port removal on 02/25. Recommend a 72h line holiday if able, or at least a 48h line holiday - F/u BCx from 02/24 and 02/26 until finalized to ensure negative - Continue to monitor closely for any new/worsening focal complaints (e.g., joint pain, back pain) with low threshold to image/evaluate as possible metastatic infection - Recommend referral to local outpatient ID for follow-up if able - Weekly lab monitoring while on IV antibiotics (including as an outpatient): CBC w/ diff, CMP, CK for daptomycin - Ensure close follow-up with primary care and oncology Plan discussed with primary team. Thank you for letting ID participate in the care of this patient. ID will sign off at this time. If questions, please [facility] at [phone]. Aby Schilling MD, MHS Infectious Diseases [facility]/ID Connect ID Connect direct line: [phone] Admission and Anticipated Discharge Date Admission Date: February 22, 2025 Subjective This patient recommendation is based on a telemedicine consult request which was completed asynchronously through chart review and information provided by the primary physician. The patient was not seen or examined today. The evaluation is consultative in nature and all patient care and treatment decisions can either be accepted or rejected by the patient's primary hospital-based treating physician using their own independent medical judgment for their patient. Time Spent Reviewing Chart: 31+ minutes - Port removed on 02/25, line holiday - Afebrile, WBC 4.34 Results & Data Vital Signs (Past 12 Hours) Vital Signs Temp Pulse Resp BP Pulse Ox O2 Del Method 02/27/25 07:50 Room Air 02/27/25 07:38 36.8 C 90 15 112/67 95 Room Air Laboratory Results Diagnostics: 02/22 CTA Chest No evidence for pulmonary embolism. Redemonstrated mucoid impaction of the right lower lobe bronchus and distal small airways throughout the right lower lobe. An area of soft tissue density within the right lower lobe hilar region has increased from December 2024. Follow-up recommended, including endoscopy, and/or PET/CT. Micro Data: 02/26 BCx x2: NGTD 02/25 catheter tip Cx: MRSA 02/24 BCx x2: NGTD 02/22 BCx x2: MRSA in 2/2 sets (3 of 4 bottles) Antibiotic Summary: daptomycin (02/27 present) prior Vanc 02/22 02/26 Cefepime 02/22 02/24
[2025-02-27] MEDS: DAPTOmycin 300 MG in SYRINGE 0 ML IV SCH (11:58)
--- NOTE | 2025-02-27 22:59 | Hospitalist Progress Note ---
Date of Service February 27, 2025 Assessment & Plan (1) MRSA bacteremia: (2) Lung cancer metastatic to brain: (3) Elevated troponin: (4) Chronic obstructive pulmonary disease: Plan 64yo female with history of metastatic lung cancer, RA, COPD presenting with fever following chemotherapy. Found to have MRSA bacteremia no apparent source with likely will need Mediport removed #MRSA bacteremia on multiple blood cultures *Possible bloodstream infection due to mediport, POA s/p removal of mediport on 02/25. Blood pressure has been soft today, ordered IVF boluses of 2 liters and then ordered omne time dose of midodrine -check echo, repeat blood cx on 02/24, will need clear cultures and PICC placement prior to removal consulted ID. -Continue empiric antibiotics Vancomycin and Cefepime, cefepime to stop if not Gr negative grow -Continue IVF LR at 80mL/hr x 1L -Tylenol PRN -mediport now growing MRSA, repeat blood cultures ar e negative at 48 hour eugene. reordered blood culture today. anticipate discharge in 48 hours. Needs a 72 hour holiday. This will be completed tomorrow. will obtain PICC line consent in AM Labs look normal. #Lung cancer metastatic to brain - on chemotherapy with fever and MRSA bacteremia. Not neutropenic, completed a session of XRT on 02/24 -had one dose of corticosteroid #Elevated troponin and BNP -Check 2D echo -Repeat troponin trending downward, demand ischemia -No report of chest pain #COPD - not inexacerbation -Albuterol PRN - history of tobacco, offered nicotine patch #Anxiety/Mental Health -Continue Sertraline -Continue Clonazepam PRN at home dose Admission and Anticipated Discharge Date Admission Date: February 22, 2025 Subjective 64 yo female reports no new symptoms. Physical Exam Physical Exam: pt is comfortable, no open areas of skin or sores lungs are with decreased air movement [facility] [employer] Results & Data Results & Data Vital Signs (Past 12 Hours) Vital Signs Temp Pulse Resp BP Pulse Ox O2 Del Method 02/27/25 20:31 37 C 84 14 111/69 94 Room Air 02/27/25 13:20 36.7 C 90 16 131/81 94 Room Air PG Care Time/CCT Total # of Minutes Spent Total Time Spent with Patient: Total time spent is greater than 50% in coordination of care (as documented) at patient's floor/unit and/or counseling patient: Coding Level of Care Code 61751 SUB INP/OBS CARE 50MIN Diagnoses MRSA bacteremia R78.81; B95.62 Lung cancer metastatic to brain C34.90; C79.31 Elevated troponin R79.89 Chronic obstructive pulmonary disease J44.9
[2025-02-28 06:40] LABS: Hematocrit (blood only) 29.2 % (37.0-47.0); Hemoglobin 9.6 g/dl (12.0-16.0); Mean Corpuscular Hemoglobin 27.7 pg (25.0-34.0); Mean Corpuscular Volume 84.1 fL (80.0-100.0); Platelet Count 278 K/uL (130-400); RDW Standard Deviation 43.1 fL (36.4-46.3); Red Blood Count 3.47 M/uL (4.20-5.40); White Blood Count 5.07 K/ul (4.8-10.8)
[2025-02-28 07:05] LABS: Anion Gap 6.0 (3-11); Blood Urea Nitrogen 19.0 mg/dl (6-23); Calcium 9.0 mg/dl (8.6-10.3); Carbon Dioxide 31.0 mmol/L (21-32); Chloride 101.0 mmol/L (98-107); Creatinine Clr Calc Pharmacy 39.4 ml/min; Glucose 88.0 mg/dl (70-99(Fasting)); Potassium 4.5 mmol/L (3.5-5.1); Sodium 138.0 mmol/L (136-145)
[2025-02-28 07:34] VITALS: PULSE 78
[2025-02-28 15:23] VITALS: BP 102/68; RESP 16; TEMP 98.4; O2SAT 94
== END 2025-02-28 16:20 | disposition home health service (06) | DRG 315 ==
LOC: ED 14:16 → 3E 21:03 → SUATTDRO 21:03 → 3E 22:44